=== PATIENT | female | born 1970 | race Caucasian/White ===

== ENCOUNTER 2021-12-06 17:54 | Outpatient (REF) | payer OTHER, SELFPAY ==
[2021-12-06 19:41] LABS: Abs Immature Grans 0.01 10^3/uL (0.0-0.06); Absolute Basophil Count 0.07 10^3/uL (0.0-0.2); Absolute Eosinophil Count 0.64 10^3/uL (0.0-0.7); Absolute Monocyte Count 0.57 10^3/uL (0.1-0.8); Absolute Neutrophil Count 4.37 10^3/uL (1.2-6.7); Basophils % 0.9; HCT 42.1 % (36.0-46.0); HGB 13.4 g/dL (11.2-15.7); Immature Grans % 0.1; Lymphocytes % 28.9; MCH 28.2 pg (27.0-33.0); MCHC 31.8 % (32.0-36.0); MCV 89 fL (80-95); MPV 11.2 fL (8.0-11.0); Monocytes % 7.2; Neutrophils % 54.9; Platelet Count 364 10^3/uL (130-400); RBC 4.75 10^6/uL (3.93-5.22); RDW 13.2 % (11.7-14.6); RDW-SD 43.1 fL; WBC 7.96 10^3/uL (4.4-10.8)
[2021-12-09 08:20] LABS: IgE 129 IU/mL (<158)
== END 2021-12-06 17:55 | disposition home or self-care (01) ==
LOC: LBN 17:54
PROVIDERS: PCP Nurse Practitioner Family; Visit Provider Student in an Organized Health Care Education/Training Program
DX: J45.909 Unspecified asthma, uncomplicated (principal)
CPT/HCPCS: 82785; 85025

== ENCOUNTER 2021-12-09 01:52 | Outpatient (CLI) | payer OTHER, SELFPAY ==
--- OUTSIDE RECORDS SUMMARY | 2021-12-09 01:57 | XMS_ITS | Encounter Summary ---
:1970 Author Organization [facility] Address [address] [place] [address] Care Team Providers Name Role Phone Jonathan Elmore APRN Primary Care Provider Reason for Visit Reason Onset Date Comments Medications Refill 09/20/2021 Encounter Details Date Type Department Care Team Description 09/20/2021 Refill [facility] ENT- Keren Swain MD Medications Refill [address] [address] [address], [place] [phone] (Wo rk) Social History Tobacco Use Types Packs/Day Years Used Date Former Smoker Cigarettes 04 03 Quit: 04/25/19 21 Smokeless Tobacco: Never Used Alcohol Use Standard Drinks/Week Comments Yes 7 (1 standard drink = 0.6 oz pure alcoho l) Sex Assigned at Date Recorded Not on file documented as of this encounter Ordered Prescriptions Prescription Sig Dispensed Refills Start Date End Date budesonide (PULMICORT) 0.5 2mL in sinus rinse 360 mL 3 0 09/26/2021 mg/2 mL nebulizer kit twice daily suspension documented in this encounter Miscellaneous Notes Telephone Encounter - Ramon Nelson RN - 09/20/2021 7414 EDT Refill appropriate per last note and maintenance medication prescription is less than a year old. Note states 1 mg rinse once daily but script was sent for 0.5 mg daily. Sent to provider for review and signature. elephone Encounter - Scarlett Bob - 09/20/2021 1251 EDT Medication(s) Requested budesonide (PULMICORT) 0.5 mg/2 mL nebulizer suspension [facility] [place], [place] - [address]?? Next Visit Date 11/04/2021 Last Office Visit07/29/2021 Out of Medication? No Scarlett Bob 09/20/2021 12:51 documented in this encounter Plan of Treatment Upcoming Encounters Date Type Specialty Care Team Description 02/17/2022 Office Visit Otolaryngology Keren Swain MD 111 [facility], [facility] 4 [place], [place] [phone] (Wo rk) documented as of this encounter Visit Diagnoses Not on filedocumented in this encounter Discontinued Medications Medication Sig Discontinue Reason Start Date End Date budesonide (PULMICORT) 2mL in sinus rinse 12/30/2020 09/26/2021 0.5 mg/2 mL nebulizer kit once daily suspension documented as of this encounter Care Teams Group Program Manager Relationship Specialty Start Date End Date Jonathan Elmore APRN PCP - General 12/29/[address] [place] [address] [address] [place] [address] documented as of this encounter
--- OUTSIDE RECORDS SUMMARY | 2021-12-09 01:57 | XMS_ITS | Encounter Summary ---
:1970 Author Organization [facility] Address [address] [place] [address] Care Team Providers Name Role Phone Jonathan Elmore APRN Primary Care Provider Encounter Details Date Type Department Care Team Description 05/02/2021 Lab Requisition [facility] Outr Resulting Lab, Pathology & Laboratory Provider [facility] [address] [place], [place] [address] Social History Tobacco Use Types Packs/Day Years Used Date Former Smoker Cigarettes 1 30 Quit: 04/25/19 21 Smokeless Tobacco: Never Used Alcohol Use Standard Drinks/Week Comments Yes 7 (1 standard drink = 0.6 oz pure alcoho l) Sex Assigned at Date Recorded Not on file documented as of this encounter Plan of Treatment Upcoming Encounters Date Type Specialty Care Team Description 02/17/2022 Office Visit Otolaryngology Keren Swain MD 111 [facility], [address] [place], [place] [phone] (Wo rk) documented as of this encounter Procedures Procedure Name Priority Date/Time Associated Diagnosis Comme nts COVID-19 TEST [facility] Today 05/02/2021 12:20 LAB PCR EST COVID-19 TESTING Routine 05/02/2021 12:20 Results for this EST procedure are i n the results section. documented in this encounter Results COVID-19 TEST [facility] LAB PCR (05/02/2021 12:20 EST) Specimen Swab Performing Organization Address City/State/ZIP Code Phon e Number [facility] [address] [place] [address] SERVICES COVID-19 TESTING (05/02/2021 12:20 EST) COVID-19 rt-PCR Negative Negative [facility] Result Comment: [facility] This test has not been FDA c leared or approved. This test has been authorized by FDA under an EUA for use by authorized laboratories. This test has been authorized only for detection of nucleic acid fro SERVICES m 2019-nCoV, not for any oth er viruses or pathogens. This test is only authorized for the duration of the declaration that circumstances exist justifying the authorization of emergency use of in vitro d iagnostic tests for detectio n and/or diagnosis of 2019-nCoV under section 564(b)(1) of Act, 21 U.S.C ?? 360bbb-3(b) (1), unless the authorization is terminated or revoked sooner. Negative results do not prec lude 2019-nCoV infection and should not be used as the sole basis for treatment or other patient management decisions. Negative results must be combined with clinical observa tions, patient history, and epidemiological informatio n. Testing was performed using the poly SARS-CoV-2 assay (Per [employer] on the Poly 6800 System Performing Lab Poly 6800 [facility] Lab [facility] SERVICES Specimen Swab Performing Organization Address City/State/ZIP Code Phon e Number [facility] [address] [place] [address] SERVICES documented in this encounter Visit Diagnoses Not on filedocumented in this encounter Care Teams Electrician Helper Powerhouse Relationship Specialty Start Date End Date Jonathan Elmore APRN PCP - General 12/29/[address] [place] [address] [address] [place], [place] [id number] documented as of this encounter
--- OUTSIDE RECORDS SUMMARY | 2021-12-09 01:57 | XMS_ITS | Encounter Summary ---
:1970 Author Organization [facility] Address [address] [place] [address] Care Team Providers Name Role Phone Jonathan Elmore APRN Primary Care Provider Reason for Visit Reason Comments Post-OP Follow Up Encounter Details Date Type Department Care Team Description 04/08/2021 Office Visit [facility] Keren Swain, Danielle onic pansinusitis ENT- [facility] (Primary Dx) [address] [phone] [facility], [address] [place] [address] (Wo rk) Social History Tobacco Use Types Packs/Day Years Used Date Former Smoker Cigarettes 1 30 Quit: 04/25/19 21 Smokeless Tobacco: Never Used Alcohol Use Standard Drinks/Week Comments Yes 7 (1 standard drink = 0.6 oz pure alcoho l) Sex Assigned at Date Recorded Not on file documented as of this encounter Ordered Prescriptions Prescription Sig Dispensed Refills Start Date End Date mupirocin (BACTROBAN) 2 Topically as directed 90 g 3 0 04/08/2021 % ointment BID, three 30 gm tubes for 30 days amoxicillin-clavulanate Take 1 Tablet by 20 Tablet 0 202104/18/2021 (AUGMENTIN) 875-125 mg mouth 2 times daily per tablet for 10 days. documented in this encounter Progress Notes Keren Swain MD - 04/08/2021 0945 EST Progress Note Division of Otolaryngology, Head and Neck Surgery Date of Service: 04/08/21 Provider: Keren Swain MD Chief Complaint: Chief Complaint Patient presents with ??? Post-OP Follow Up History of Present Illness: Aileen Murphy is a 51 y.o. female who comes in today in follow up of chronic sinusitis with polyps status post ESS 03/15/21. She has been doing well since surgery but has astable headache centered behind her eyes. This resolves with over the counter pain medications. She has been doing 8-10 saline rinses daily, with budesonide 1mg daily added. Past medical/surgical/family/social history was reviewed and unchanged other than: none Allergies: No Known Allergies Review of Systems: A 12 point review of systems was performed, and was otherwise negative. Physical Exam: Vital Signs: Reviewed (3) There were no vitals taken for this visit. Appearance: The patient appears alert, cooperative, and comfortable. Communication/Voice: Normal Head and Face: Inspection: Normal without apparent scars, lesions, or masses. Palpation: Not performed. Salivary Glands: Not examined Facial Strength: Intact and symmetrical bilaterally External Ear & Nose: No external ear or nose deformity noted Ears, Nose, Mouth and Throat: Otoscopy: Right external auditory canal: not examined Left external auditory canal: not examined Right tympanic membrane: not examined Left tympanic membrane: not examined Nose: See nasal endoscopy Lips, Teeth & Gums: not examined Oral Cavity & Oropharynx: not examined Neck: General: Not examined Thyroid: Not examined Cervical Lymph Nodes: Not Examined Procedure: Endoscopy Pre-procedure Dx: CRS with polyps Post-procedure Dx: same Indication: evaluation of symptoms of rhinitis/sinusitis unable to visualize on anterior rhinoscopy Anesthesia: Cophenylcaine Endoscopy type: Rigid Procedure: Informed consent was obtained. The patient was seated upright, and topical anesthetic wasapplied. After waiting for the anesthetic/vasoconstrictor effect, the scope was passed into both nostrils and the nasal cavities and nasopharynx were examined. The patient tolerated the procedure well,and left the office in stable condition. Complications: None Findings: Nose: septum midline, inferior turbinates normal in appearance and middle turbinates normal in appearance - right well medialized; left with a mild synechiae inferiorly on the left which was lysed. Right sinus cavity with zazueta crusting which was suctioned free. No obvious purulence or infection.Left sinus cavity with a small amount of purulent discharge within the left maxillary sinus which was suctioned free. Otherwise healing well with thin, healing mucosa on the left. The right sinus cavity with irregular, irritated mucosa without edema. Nasopharynx: Normal examination of the choanae, eustachian tube orifices, and posterior nasopharyngeal wall Assessment: 1. CRS with polyps status post ESS 03/15/21, healing well with evidence of mild infection at this time. We will treat with anti-staph mucolytic rinses and a course of oral antibiotics (augmentin) 2. Asthma - pending pulmonology consultation ?? Plan:?? - BID rinses with alkolol, mupirocin, budesonide in one and saline with budesonide in the second - Augmentin x7 days - Pulmonology consultation on a nonurgent basis to initiate care and ongoing treatment - Follow up in 1 month Keren Swain MD 04/08/21 documented in this encounter Plan of Treatment Upcoming Encounters Date Type Specialty Care Team Description 02/17/2022 Office Visit Otolaryngology Keren Swain MD [address] [facility], [address] [place], [place] [phone] (Wo rk) documented as of this encounter Visit Diagnoses Diagnosis Chronic pansinusitis - Primary Other chronic sinusitis documented in this encounter Care Teams Lens Cementer Relationship Specialty Start Date End Date Jonathan Elmore APRN PCP - General 12/29/[address] [place] [address] [address] [place] [address] documented as of this encounter
--- OUTSIDE RECORDS SUMMARY | 2021-12-09 01:57 | XMS_ITS | Encounter Summary ---
:1970 Author Organization [facility] Address [address] [place] [address] Care Team Providers Name Role Phone Jonathan Elmore APRN Primary Care Provider Encounter Details Date Type Department Care Team Description 11/22/2021 Lab Requisition [facility] Outr Resulting Lab, Pathology & Laboratory Provider [facility] [address] [place], [place] [address] Social History Tobacco Use Types Packs/Day Years [...] 02/17/2022 Office Visit Otolaryngology Keren Swain MD [address] [place] [address], [address] [place], [place] [phone] (Wo rk) documented as of this encounter Procedures Procedure Name Priority Date/Time Associated Diagnosis Comme nts LYME AB Routine 11/22/2021 16:08 EDT Results for this procedure are i n the results section . documented in this encounter Results LYME AB (11/22/2021 16:08 EDT) Pathologist Sig nature Lyme Ab Negative Negative [facility] Specimen Blood - Venous blood (substance) Performing Organization Address City/State/ZIP Code Phon e Number [facility] [address] [place] [address] SERVICES documented in this encounter Visit Diagnoses Not on filedocumented in this encounter Care Teams Sand Cleaning Machine Operator Relationship Specialty Start Date End Date Jonathan Elmore APRN PCP - General 12/29/[address] [place] [address] [address] [place] [address] documented as of this encounter
--- OUTSIDE RECORDS SUMMARY | 2021-12-09 01:57 | XMS_ITS | Encounter Summary ---
:1970 Author Organization [facility] Address [address] [place] [address] Care Team Providers Name Role Phone oJnathan Elmore APRN Primary Care Provider Encounter Details Date Type Department Care Team Description 07/15/2021 Orders Only [facility] Ramon Nelson RN Encounter for ENT- [address] preprocedure screening [address] [place] [address] [place] [address] COVID-19 (Primary Dx) [phone] Social History Tobacco Use Types Packs/Day Years [...] Office Visit Otolaryngology Keren Swain MD 111 [facility], Level [address] [place], [place] [address] (Wo rk) Scheduled Orders Name Type Priority Associated Diagnoses Order S chedule COVID-19 TESTING Microbiology Routine Encounter for Expected: 07/26/2021 preprocedure screening (Appr oximate), laboratory testing for Expir es: 07/15/2022 COVID-19 documented as of this encounter Visit Diagnoses Diagnosis Encounter for preprocedure screening lab oratory testing for COVID-19 - Primary documented in this encounter Care Teams Installer Relationship Specialty Start Date End Date Jonathan Elmore APRN PCP - General 12/29/[address] [place] [address] [address] [place] [address] documented as of this encounter
--- OUTSIDE RECORDS SUMMARY | 2021-12-09 01:57 | XMS_ITS | Encounter Summary ---
:1970 Author Organization [facility] Address [address] [place] [address] Care Team Providers Name Role Phone Jonathan Elmore APRN Primary Care Provider Encounter Details Date Type Department Care Team Description 04/21/2021 Orders Only [facility] Ramon Nelson, RN Encounter for ENT- [address] preprocedure screening [address] [place] [address] [place] [address] COVID-19 (Primary Dx) [phone] Social History Tobacco Use Types Packs/Day Years [...] Office Visit Otolaryngology Keren Swain MD 111 [facility], [address] [place], [place] [address] (Wo rk) documented as of this encounter Visit Diagnoses Diagnosis Encounter for preprocedure screening lab oratory testing for COVID-19 - Primary documented in this encounter Care Teams Electrical Appliance Preparer Relationship Specialty Start Date End Date Jonathan Elmore APRN PCP - General 12/29/[address] [place] [address] [address] [place], [place] [address] documented as of this encounter
--- OUTSIDE RECORDS SUMMARY | 2021-12-09 01:57 | XMS_ITS | Encounter Summary ---
:1970 Author Organization [facility] Address [address] [place] [address] Care Team Providers Name Role Phone Jonathan Elmore APRN Primary Care Provider Reason for Visit Reason Comments Follow-up Encounter Details Date Type Department Care Team Description 11/04/2021 Office Visit [facility] Keren Swain, Danielle onic pansinusitis ENT- [facility] (Primary Dx) [address] [place] [address] Avenue [phone] [facility], [address] [place] [address] (Wo rk) Social History Tobacco Use Types Packs/Day Years Used Date Former Smoker Cigarettes 30 Quit: 04/25/19 21 Smokeless Tobacco: Never Used Alcohol Use Standard Drinks/Week Comments Yes 7 (1 standard drink = 0.6 oz pure alcoho l) Sex Assigned at Date Recorded Not on file documented as of this encounter Progress Notes Keren Swain MD - 11/04/2021 0915 EDT Progress Note Division of Otolaryngology, Head and Neck Surgery Date of Service: 11/04/21 Provider: Keren Swain MD Chief Complaint: Chief Complaint Patient presents with ??? Follow-up History of Present Illness: Aileen Murphy is a 51 y.o. female who comes in today in follow up of chronic sinusitis with polyps status post ESS 03/15/21. ??She has been doing well since surgery. ??She has been one budesonide 1mg rinse daily. Her nasal breathing and sense of smell are good. She has no complaints today. Past ENT Surgeries/Interventions: Past medical/surgical/family/social history was reviewed and unchanged [...] inferior turbinates normal in appearance and middle turbinate normal in appearance. Left middle turbinate with a small synechiae to the lateral wall. The bilateral sinus cavities are widely patent with mild mucosal thickening but overall healthy mucosa throughout. Nasopharynx: Normal examination of the choanae, eustachian tube orifices, and posterior nasopharyngeal wall Investigations: 11/04/21 SNOT-22 total score: 8 Problem as bad as it can be - 5: N/A Severe problem - 4: N/A Moderate problem - 3: N/A Mild or slight problem - 2: Post-nasal discharge and Thick nasal discharge Very mild problem - 1: Need to blow nose, Sneezing, Runny nose and Thick nasal discharge NOSE score: 0 Assessment: 1. CRS with polyps??status post ESS 03/15/21. Mild increase in mucosal edema today so we discussed 2 weeks of BID 1mg budesonide rinses, then back to 1mg budesonide rinse daily 2. Asthma - pending pulmonology consultation ?? Plan:?? -??Daily 1mg budesonide rinse; 2 weeks of BID 1mg rinses - Pulmonology consultation on a nonurgent basis to initiate care and ongoing treatment - Follow up in??3??months Keren Swain MD 11/04/21 documented in this encounter Plan of Treatment Upcoming Encounters Date Type Specialty Care Team Description 02/17/2022 Office Visit Otolaryngology Keren Swain MD [address] [facility], [address] [employer] [address] (Wo rk) documented as of this encounter Visit Diagnoses Diagnosis Chronic pansinusitis - Primary Other chronic sinusitis documented in this encounter Historical Medications This list may reflect changes made after this encounter. Medication Sig Dispensed Refills Start Date End Date omeprazole (PRILOSEC) 40 mg capsule 0 10/17/2021 added in this encounter Care Teams Skin Drier Relationship Specialty Start Date End Date Jonathan Elmore APRN PCP - General 12/29/[address] [place] [address] [address] [place] [address] documented as of this encounter
--- OUTSIDE RECORDS SUMMARY | 2021-12-09 01:57 | XMS_ITS | Encounter Summary ---
:1970 Author Organization [facility] Address [address] [place] [address] Care Team Providers Name Role Phone Jonathan Elmore APRN Primary Care Provider Reason for Visit Reason Comments Follow-up Encounter Details Date Type Department Care Team Description 05/06/2021 Office Visit [facility] Keren Swain, Danielle onic pansinusitis ENT- [facility] (Primary Dx) [address] [place] [address] Avenue [phone] [facility], [address] [place] [address] (Wo rk) Social History Tobacco Use Types Packs/Day Years Used Date Former Smoker Cigarettes 04 03 Quit: 04/25/19 21 Smokeless Tobacco: Never Used Alcohol Use Standard Drinks/Week Comments Yes 7 (1 standard drink = 0.6 oz pure alcoho l) Sex Assigned at Date Recorded Not on file documented as of this encounter Progress Notes Keren Swain MD - 05/06/2021 0900 EST Progress Note Division of Otolaryngology, Head and Neck Surgery Date of Service: 05/06/21 Provider: Keren Swain MD Chief Complaint: Chief Complaint Patient presents with ??? Follow-up History of Present Illness: Alieen Murphy is a 51 y.o. female who comes in today in follow up of chronic sinusitis with polyps status post ESS 03/15/21. ??She has been doing well since surgery and herheadache has resolved. ??She has been doing multiple saline rinses daily, with budesonide 1mg daily added. Past ENT Surgeries/Interventions: Past medical/surgical/family/social history was [...] Nodes: Not Examined Procedure: Endoscopy Pre-procedure Dx: CRS, recent ESS Post-procedure Dx: same Indication: evaluation of symptoms of rhinitis/sinusitis unable to visualize on anterior rhinoscopy;postoperative evaluation Anesthesia: Cophenylcaine Endoscopy type: Rigid Procedure: Informed [...] appearance and middle turbinates normal in appearance and well medialized. Small synechiae from the left MT to the side wall that was left in place today. Bilateral sinus cavities are patent with thin, healthy mucosa throughout. No crusting or discharge. No edema. Nasopharynx: Normal examination of the choanae, eustachian tube orifices, and posterior nasopharyngeal wall Assessment: 1. CRS with polyps??status post ESS 03/15/21, healing well. Left MT to lateral wall synechiae left inplace - can consider lysis at future visit 2. Asthma - pending pulmonology consultation ?? Plan:?? -??BID rinses with alkolol, mupirocin, budesonide in one and saline with budesonide in the second - Pulmonology consultation on a nonurgent basis to initiate care and ongoing treatment - Follow up in 2 months Keren Swain MD 05/06/21 documented in this encounter Plan of Treatment Upcoming Encounters Date Type Specialty Care Team Description 02/17/2022 Office Visit Otolaryngology Keren Swain MD 111 [facility], [address] [place], [place] [phone] (Wo rk) documented as of this encounter Visit Diagnoses Diagnosis Chronic pansinusitis - Primary Other chronic sinusitis documented in this encounter Care Teams Financial Systems Manager Relationship Specialty Start Date End Date Jonathan Elmore APRN PCP - General 12/29/[address] [place] [address] [address] [place] [address] documented as of this encounter
--- OUTSIDE RECORDS SUMMARY | 2021-12-09 01:57 | XMS_ITS | Encounter Summary ---
:1970 Author Organization [facility] Address [address] [place] [address] Care Team Providers Name Role Phone Jonathan Elmore APRN Primary Care Provider Encounter Details Date Type Department Care Team Description 12/07/2021 Lab Requisition [facility] Outr Resulting Lab, Pathology & Laboratory Provider [facility] [address] [place], [place] [address] Social History Tobacco Use Types Packs/Day Years [...] Office Visit Otolaryngology Keren Swain MD 111 [facility], [address] [place], [place] [address] (Wo rk) Pending Results Name Type Priority Associated Diagnoses Date/Ti me IGE Lab Routine 12/06/2021 19:2 3 EDT documented as of this encounter Visit Diagnoses Not on filedocumented in this encounter Care Teams Plate Printer Relationship Specialty Start Date End Date Jonathan Elmore APRN PCP - General 12/29/20 [facility] [address] [place], [place] [id number] documented as of this encounter
--- OUTSIDE RECORDS SUMMARY | 2021-12-09 01:57 | XMS_ITS | Encounter Summary ---
:1970 Author Organization [facility] Address [address] [place] [address] Care Team Providers Name Role Phone Jonathan Elmore APRN Primary Care Provider Reason for Visit Auth/Cert Specialty Diagnoses / Procedures Referred By Contact Refer red To Contact Diagnoses Other chronic sinusitis Chronic pansinusitis Procedures CO REPAIR OF NASAL SEPTUM CO NASAL/SINUS NDSC TOT W/SPHENDT W/SPHEN TISS RMVL CO NASAL SCOPY,RMV TISS MAXILL SINUS CO NASAL/SINUS NDSC W/RMVL TISS FROM FRONTAL SINUS CO STEREOTACTIC COMP ASSIST PROC,CRANIAL,EXTRADURAL Bilateral endoscopic sinus s urgery, possible septoplasty ENDOSCOPY, PARANASAL SINUSES, WITH TOTAL ETHMOIDECTOMY, SPHENOIDOTOMY, AND SPHENOID SINUS TISSUE REMOVAL [[id number]] ENDOSCOPY, NOSE AND PARANASA L SINUS, WITH MAXILLARY ANTROSTOMY AND MAXILLARY SINUS TISSUE EXCISION [[id number]] ENDOSCOPY, FRONTAL SINUS, WITH TISSUE EXCISION [[id number]] Referral ID Status Reason Start Date Expiration Date Visits Requ ested Visits Authorized [id number] 1 1 Encounter Details Date Type Department Care Team Description 03/15/2021 Surgery [facility] OR Keren Swain MD Bilateral endoscopic 111 [facility] e 111 [facility] sinus surgery [[address] [place], [place] [id number] [place] [address] (CPT??)] [phone] [facility] [address] [place] [id number] (Wo rk) Surgery Details Date/Time Status Location OR Service Patient Class Case Class Case Trauma Type Case? 03/15/21 1040 Posted [facility] OR [facility] - Outpatient Elective Surgery Panel 1 Procedure LRB Anes Op Region Wound Class Commen ts Bilateral N/A General Nose Class II/ Clean TIVA anes thesia endoscopic sinus Contaminated 3.5 ho urs surgery requested 1 week follow up [facility] requested ENDOSCOPY, Bilateral General Nose Class II/ Clean PARANASAL SINUSES, Contaminated WITH TOTAL ETHMOIDECTOMY, SPHENOIDOTOMY, AND SPHENOID SINUS TISSUE REMOVAL [[id number]] ENDOSCOPY, NOSE AND Bilateral General Nose Class II/ Clean PARANASAL SINUS, Contaminated WITH MAXILLARY ANTROSTOMY AND MAXILLARY SINUS TISSUE EXCISION [[id number]] ENDOSCOPY, FRONTAL Bilateral General Nose Class II/ Clean SINUS, WITH TISSUE Contaminated EXCISION [[id number]] Surgeon Surgeon Role Service Panel Keren Swain MD Primary ENT 1 Van Vizcaino MD Resident - Assisting ENT 1 Special Needs [facility]IVA please; [facility] Social History Tobacco Use Types Packs/Day Years Used Date Former Smoker Cigarettes 30 Quit: 04/25/19 Smokeless Tobacco: Never Used Alcohol Use Standard Drinks/Week Comments Yes 7 (1 standard drink = 0.6 oz pure alcoho l) Sex Assigned at Date Recorded Not on file documented as of this encounter Last Filed Vital Signs Vital Sign Reading Time Taken Comments Blood Pressure 125/77 03/15/2021 0903 EST Pulse - - Temperature 36.6 ??C (97.9 ??F) 03/15/2021 0903 EST Respiratory Rate 16 03/15/2021 0903 EST Oxygen Saturation 97% 03/15/2021 0903 EST Inhaled Oxygen Concentration - - Weight - - Height - - Body Mass Index - - documented in this encounter Discharge Instructions Roc Kinney RN - 03/15/2021 Post-operative nose & sinus care Looking after your nose and sinuses can greatly improve your recovery. Ongoing topical care may alsobe necessary to assist in returning your nose and sinus back to health. 1. Saline Irrigation with squeeze bottle: start the day after your surgery, one wash twice a day Nasal irrigations help to remove mucus, old blood and crusts, inflammatory products, fungus, and bacteria, which can irritate the sinus lining (mucosa). High volume positive pressure irrigation (Neilmed sinus rinse) is the most effective way to deliver solution to the sinus mucosa. Simple nasal spraysonly reach the lining of the nasal cavity. Nebulizers, inhalations, pressurized sprays and other forms of delivery are less effective. You can irrigate more frequently but at least twice a day. How do I use it? With your head over the sink, place the black bottle tip firm against the nostril and squeeze the bottle firmly. This should empty about half the bottle. Solution should flow out the other nostril. Repeat on the other nostril. Please use the squeeze bottle and not a pump or pressurized spray. You can use it more than twice a day if it helps clear secretions. Video of irrigation technique: https://www.youtube.com/watch?v=DYZDeiOVJx0 Or search ???B[place]ivar Med Sinus Rinse?? from the [employer] channel 2. Antibiotic Ointment: pea-sized amount to both nostrils 2x/day Bactroban ointment is an antibiotic that kills infection-causing bacteria. It is especially effective against Staph aureus bacteria. 3. Other medicines that might be required Oral Antibiotic An antibiotic effective against common bacteria in the sinus has been prescribed. Helps to prevent sinusitis and infection after surgery. An alternative will be given if you are allergic to penicillin.Oral Steroid (prednisone) Prevents and reduces inflammation after surgery. Take in the morning. Oxymetazoline nasal spray Useful in in the first 72 hours if there is troublesome bleeding/ooze 4. Pain relief: Regular use of Tylenol and ibuprofen for 48-72 hours then as required. You may be given a few tablets of narcotic pain medication to be used for breakthrough pain not relieved with Tylenol and ibuprofen. 5. Do not blow your nose. It's better to irrigate out any mucus or old blood. 6. If you bend down or strain, blood may come out of the nose from the small healing mucosal edges inside. Do not worry if this happens ??? no harm is done ??? but it is a sign to take things easier. 7. Your postoperative appointment will be 7-21 days after surgery. Please see your discharge paperwork for this appointment time. Call the clinic with any concerns: You may resume Acetaminophen (Tylenol) at __7:30 pm____. Please follow instructions for use on back of bottle. You may resume Ibuprofen (Advil) at __9 pm .Please follow instructions for use on back of bottle. documented in this encounter Medications at Time of Discharge Medication Sig Dispensed Refills Start Date End Date budesonide/formoterol Inhale as directed. 0 fumarate (SYMBICORT INHALATION) cetirizine (ZYRTEC) 10 Take 10 mg by mouth 0 mg tablet daily. famotidine (PEPCID) 20 Take 20 mg by mouth 0 mg tablet daily. montelukast (SINGULAIR) Take by mouth daily. 0 10 mg tablet oxyCODONE (ROXICODONE) 5 Take 1 Tablet by 2 Tablet 0 03/15 mg immediate release mouth every 4 hours tablet as needed for Pain. Daily Max: 30 mg budesonide (PULMICORT) 2mL in sinus rinse 180 mL 3 12/3009/26/2021 0.5 mg/2 mL nebulizer kit once daily suspension cephalexin (KEFLEX) 500 Take 1 capsule by 14 capsule 0 03/1503/22/2021 mg capsule mouth 2 times daily for 7 days. predniSONE (DELTASONE) Take 3 Tablets by 42 Tablet 0 202104/05/2021 10 mg tablet mouth daily for 7 days, THEN 2 Tablets daily for 7 days, THEN 1 Tablet daily for 7 days. documented as of this encounter Ordered Prescriptions Prescription Sig Dispensed Refills Start Date End Date oxyCODONE (ROXICODONE) 5 Take 1 Tablet by 2 Tablet 0 03/15 mg immediate release mouth every 4 hours tablet as needed for Pain. Daily Max: 30 mg predniSONE (DELTASONE) 10 Take 3 Tablets by 42 Tablet 0 01/202204/05/2021 mg tablet mouth daily for 7 days, THEN 2 Tablets daily for 7 days, THEN 1 Tablet daily for 7 days. cephalexin (KEFLEX) 500 Take 1 capsule by 14 capsule 0 03/1503/22/2021 mg capsule mouth 2 times daily for 7 days. documented in this encounter Discharge Disposition Disposition Code Departure Means Destination Comments Home or Self Care Wheelchair [facility] nd documented in this encounter H&P Notes Van Vizcaino MD - 03/15/2021 1018 EST The preoperative history and physical which was performed within 30 days of this procedure has been reviewed and the clinically appropriate elements of the physical examination havebeen repeated. There are no changes to the documented history and physical or if so such changes aredocumented below Van Vizcaino MD 03/15/2021 10:18 documented in this encounter Nursing Notes Darryl Erwin RN - 03/15/2021 0906 EST Preop Covid DOS screening questionnaire Please document by exception (only check those that apply). Have you had any of the following symptoms recentlyNo Yes Chronic ? Cough Shortness of breath or difficulty breathing Fever Chills Fatigue Muscle or body aches Severe Headache New loss of taste or smell Sore throat Congestion or runny nose Rash Nausea, vomiting, or diarrhea (rare in adults. More common in children) Were you covid tested Yes When: 03/11/21 Results: Vaccinated: YES See admission vital signs documentation for admission temperature. DARRYL ERWIN RN documented in this encounter OR Notes OR Surgeon - Keren Swain MD - 03/15/2021 1018 EST OPERATIVE REPORT SERVICE DATE: 03/15/2021 SURGEON: Keren Swain MD STAFFING ADMINISTRATOR: Van Vizcaino MD PREOPERATIVE DIAGNOSIS: 1. Chronic rhinosinusitis. POSTOPERATIVE DIAGNOSIS: Same. ANESTHESIA: General endotracheal. PROCEDURE: 1. Bilateral maxillary antrostomy with removal of tissue 2. Bilateral total ethmoidectomy 3. Bilateral sphenoidotomy with removal of diseased tissue 4. Use of [employer] imaging guidance system FINDINGS: 1. Sinonasal polyposis within the nasal cavity and the paranasal sinuses. Thick mucin within the paranasal sinuses. INDICATIONS: Aileen Murphy is a 51 y.o. female with a history of chronic sinusitis with polyposis in the setting of asthma. Due to the duration and severity of these symptoms, and the lack of response to medical therapy, surgery was recommended to decrease inflammatory burden and facilitate delivery of topical medications. NARRATIVE: The patient was identified in the preoperative hold area, where surgical consent was confirmed and all pertinent questions were answered. The patient was then escorted to the operating theater, where abrief operative time-out was assured, according to the WHO standards. The patient was then positioned supine on the operating table and the patient???s head supported by an operative donut. The patientthen underwent general anesthesia and an oral endotracheal tube was placed. Patient position was then changed to the reverse Trendelenberg to aid in hemostasis. The patient was then draped in the usualmanner for nasal surgery. Upon induction, 2g of IV Kefzol and 8mg of IV Decadron were administered. Prior to surgery, the CT scan was reviewed, with careful consideration of the anterior ethmoid arteries and optic nerves. [facility] protocol CT sinus scans were also downloaded to the [employer] workstation. The [facility] system was used because of the extent of disease and the need to enter sinuses, adjacent to the eyes and brain. This was calibrated to good accuracy, with multiple instruments and calibration was re-checked at multiple times throughout the case as we used instruments to confirm important anatomical details, like position of the ethmoid roof and frontal sinus pederson. Surgery was furtherfacilitated with Storz 0- and 30-degree endoscopes, [employer] instrumentation, and the [employer] [facility] odebrider. Prior to proceeding, bilateral nasal cavities were topicalized with pledgets soaked in 0.5% bupivicaine with 1:2000 epinepherine solution. After allowing adequate time for vasoconstriction, the case proceeded with injection of 0.5% marcaine with epinephrine into bilateral lateral pederson - at the regions of the sphenopalatine artery and the anterior ethmoid artery. Attention was turned to the left nasal cavity. Polyps were debrided from the nasal cavity. Using a 0-degree endoscope, the uncinate was incised from posterior to anterior at its inferior aspect with a backbiter. The natural ostium was cannalized anteriorly and stretched posteriorly with a double-J probe to visualize the maxillary sinus. A straight through-cut was used to open the maxillary ostium posteriorly and inferiorly. The inferior uncinate was then removed with a backbiter. The superior uncinate was palpated with the double J probe and removed with up and straight through-cut instruments. A quadcut microdebrider was used to create a large maxillary antrostomy, through which the inferior orbital wall was identified. A 30 degree scope was used to confirm that the natural ostium was in continuity with the antrostomy. Extensive polypoid tissue and mucinous concretions were debrided from the maxillary sinus. The ethmoid bulla was identified and an up curette was used to marsupialize this. The bulla was excised and lamina was exposed using the quadcut microdebrider. The anterior ethmoid cells were opened. The basal lammella was entered with an up curette. Up through-cut forceps were used to open the posteri or ethmoids carefully, with care taken to stay at a plane below the floor of the orbit. The head of the superior turbinate was identified and the inferior-most aspect of it was removed with a straight through cut. This allowed for exposure of the sphenoid ostium, which was cannulated withan up curette and stretched gently inferiorly and laterally. Up and down kerrisons were then used toexcise the anterior face of the sphenoid with care taken to preserve the superior turbinate. Extensive polypoid tissue was removed from the sphenoid sinus. This provided complete visualization of the skull base posteriorly. The posterior ethmoidectomy was then completed from posteriorly to anteriorly in order to visualize the skull base throughout the ethmoid cavity. Attention was then turned to the right nasal cavity. Using a 0-degree endoscope, the uncinate was incised from posterior to anterior at its inferior aspect with a backbiter. The natural ostium was cannalized anteriorly and stretched posteriorly with a double-J probe to visualize the maxillary sinus. Astraight through-cut was used to open the maxillary ostium posteriorly and inferiorly. The inferior uncinate was then removed with a backbiter. The superior uncinate was palpated with the double J probe and removed with up and straight through- cut instruments. A quadcut microdebrider was used to create a large maxillary antrostomy, through which the inferior orbital wall was identified. A 30 degree scope was used to confirm that the natural ostium was in continuity with the antrostomy. Extensive polypoid tissue and concretions was debrided from the maxillary sinus. The ethmoid bulla was identified and an up curette was used to marsupialize this. The bulla was excised and lamina was exposed using the quadcut microdebrider. The anterior ethmoid cells were opened. The basal lammella was entered with an up curette. Up through-cut forceps were used to open the posteri or ethmoids carefully, with care taken to stay at a plane below the floor of the orbit. The head of the superior turbinate was identified and the inferior-most aspect of it was removed with a straight through cut. This allowed for exposure of the sphenoid ostium, which was cannulated withan up curette and stretched gently inferiorly and laterally. Up and down kerrisons were then used toexcise the anterior face of the sphenoid with care taken to preserve the superior turbinate. Extensive polypoid tissue was removed from the sphenoid sinus. This provided complete visualization of the skull base posteriorly. The posterior ethmoidectomy was then completed from posteriorly to anteriorly in order to visualize the skull base throughout the ethmoid cavity. After assuring adequate hemostasis, the middle turbinates were medialized with a transfixion suture using Vicryl. Bilateral gloved merocel packs were placed in the ethmoid spaces and infiltrated with 5mg decadron mixed with 0.5mg marcaine with 1:200,000 epinephrine. The patient was then turned over to anesthesia for emergence. There were no complications to the case and the patient tolerated the procedure well. All counts were correct at the close of the procedure. Dr. Swain was present and actively participated in the care of this patient throughout the duration of the case. ESTIMATED BLOOD LOSS: 80 mL. FLUIDS: See anesthesia record. URINE OUTPUT: Not recorded. SPECIMENS: Bilateral sinus contents for surgical pathology. CULTURES: Left maxillary and right sphenoid sinus contents for culture, sensitivity, gram stain, andfungal. DRAINS, PACKS AND FOREIGN MATERIALS RETAINED: Bilateral gloved merocel packs were placed in the ethmoid spaces. COMPLICATIONS: None. CONDITION: Good to PACU. Unless otherwise noted, there were no complications, no blood loss, no cultures obtained, no specimens removed, and no drains retained. Van Vizcaino MD PGY-5, Otolaryngology Chief Resident 03/15/21 13:31 Attestation statement: Supervising Physician I was present for the entire bilateral endoscopic sinussurgery procedure. Keren Swain MD Otolaryngology-[facility] documented in this encounter Plan of Treatment Upcoming Encounters Date Type Specialty Care Team Description 02/17/2022 Office Visit Otolaryngology Keren Swain MD [address] [facility], [address] [place], [place] [address] (Wo rk) documented as of this encounter Procedures Procedure Name Priority Date/Time Associated Diagnosis Comme nts ANAEROBE Routine 03/15/2021 13:03 Results for this CULTURE/SMEAR(INC. EST procedure are in AEROBES), OTHER the results section. FUNGUS Routine 03/15/2021 13:03 Results for this CULTURE/SMEAR EST procedure are in the results section. ANAEROBE Routine 03/15/2021 12:00 Results for this CULTURE/SMEAR(INC. EST procedure are in AEROBES), OTHER the results section. FUNGUS Routine 03/15/2021 12:00 Results for this CULTURE/SMEAR EST procedure are in the results section. SURGICAL PATHOLOGY Routine 03/15/2021 11:49 Resul ts for this EST procedure are i n the results section. ENDOSCOPY, FRONTAL 03/15/2021 10:50 Other chronic SINUS, WITH TISSUE EST sinusitis EXCISION Chronic pansinusitis Special Needs TIVA please; [facility] EM ENDOSCOPY, NOSE AND 03/15/2021 10:50 EST Other c hronic sinusitis PARANASAL SINUS, WITH Chronic pansinusiti s MAXILLARY ANTROSTOMY AND MAXILLARY SINUS TISSUE EXCISION Special Needs TIVA please; [facility] EM ENDOSCOPY, PARANASAL 03/15/2021 10:50 EST Other chronic sinusitis SINUSES, WITH TOTAL Chronic pansinusitis ETHMOIDECTOMY, SPHENOIDOTOMY, AND SPHENOID SINUS TISSUE REMOVAL Special Needs TIVA please; [facility] EM SEPTOPLASTY, NOSE, WITH 03/15/2021 10:50 EST Oth er chronic sinusitis SUBMUCOSAL RESECTION Chronic pansinusitis Special Needs TIVA please; [facility] EM TEST, URINE STAT 03/15/2021 9:13 EST Results for this procedure are in the results sec tion. documented in this encounter Results ANAEROBE CULTURE/SMEAR(INC. AEROBES), OTHER (03/15/2021 13:03 EST) Pathologist Sig nature Organism ID No Growth [facility] Smear No Neutrophils Seen [facility] Smear No bacteria seen [facility] Specimen Tissue - Nasal Sinus, Sphenoid Performing Organization Address City/State/ZIP Code Phon e Number [facility] [address] [place] [address] SERVICES FUNGUS CULTURE/SMEAR (03/15/2021 13:03 EST) Pathologist Sig nature Organism ID No fungi isolated [facility] Fungal Smear No Fungi Seen [facility] Specimen Tissue - Nasal Sinus, Sphenoid Performing Organization Address City/[facility]/ZIP Code Phon e Number [facility] [address] [place] [phone] SERVICES (ABNORMAL) ANAEROBE CULTURE/SMEAR(INC. AEROBES), OTHER (03/15/2021 12:00 EST) Pathologist Sig nature Organism ID Few usual [facility] william-pharyngeal mike LABORATORY SERVICES Smear Moderate Neutrophils [facility] Present (A) LABORATORY SERVICES Smear Few Mixed Gram [facility] Positive Organisms (A) LABORATORY SERVICE S Specimen Tissue - Nasal Sinus, Maxillary Performing Organization Address City/[facility]/ZIP Code Phon e Number [facility] [address] [place] [phone] SERVICES FUNGUS CULTURE/SMEAR (03/15/2021 12:00 EST) Pathologist Sig nature Organism ID No fungi isolated [facility] Fungal Smear No Fungi Seen [facility] Specimen Tissue - Nasal Sinus, Maxillary Performing Organization Address City/[facility]/ZIP Code Phon e Number [facility] [address] [place] [phone] SERVICES SURGICAL PATHOLOGY (03/15/2021 11:49 EST) Note to Patient The following [facility] pathology results CENTER have been interpreted LABORATORY by your pathologist SERVICES and may be available to you before your health provider has had the opportunity to review them. Please allow time for your provider to receive these results and explore management options, if applicable. Final Diagnosis A. SINUS CONTENTS, BILATERAL, TISSUE REMOVAL: [facility] MEDICAL - Fragments of respiratory m ucosa with chronic inflammation and abundant eosinophils. CENTER - Abundant aggregates of eos inophils and debris outside of the tissue fragments. LABORATORY - PAS stain performed on 2 b locks (A1 and A3) to increase diagnostic yield: Stains are negative for fungal organisms. SERVICES Attestation By the signature [facility] Electronica lly below, the attending CENTER signed by Marcello, physician certifies LABORATORY Rosa chau MD on that they have 1) SERVICES 03/18/2021 at 1209 personally conducted a gross and/or microscopic examination of the described specimen(s), and/or personally interpreted the results of laboratory testing of the described specimen(s), and 2) personally rendered or confirmed the above diagnosis. Clinical History Other chronic [facility] sinusitis, chronic CENTER pansinusitis LABORATORY SERVICES Gross Description A. [facility] Received fresh in a suction container, labelled with proper patient identification (initials C, D) and bilateral sinus contents is serosanguineous fluid, within which are multiple pink-rodriguez soft tissue CENTE R fragments admixed with bloo d and mucus (12.0 x 11.0 x 2.0 cm in aggregate). Cs Associate sections are submitted in A1-A3. LABORATORY SERVICES LEELA ARAUJO(ASCP) 03/16/2021 8:28 Performing Lab [facility] Scanned Images [facility] Specimen Tissue - Entire nasal sinus (body struct ure) Performing Organization Address City/[facility]/ZIP Code Phon e Number [facility] [address] [place] [address] SERVICES TEST, URINE (03/15/2021 9:13 EST) Test, NegativeComment: Negative [facility] Urine False negative LABORATORY results may occur in SERVICES women who are beyond 5-8 weeks gestation. Diagnosis of should be based on a correlation of test results with typical clinical signs and symptoms. Specimen Urine - Urine (substance) Performing Organization Address City/[facility]/ZIP Code Phon e Number [facility] [address] [place] [address] SERVICES documented in this encounter Visit Diagnoses Diagnosis Other chronic sinusitis - Primary Other chronic sinusitis Chronic pansinusitis Other chronic sinusitis documented in this encounter Admitting Diagnoses Diagnosis Other chronic sinusitis documented in this encounter Administered Medications Inactive Administered Medications - up to 3 most recent administrations Medication Order MAR Action Action Date Dose Rate Site acetaminophen (TYLENOL) solution unit do se cup 995 mg 995 mg (rounded from 1,000 mg), oral, CO N, 1 dose, Starting on Sun03/15/21 at 1930, Until Sun03/15/21 at 1748, Pain, Routine, Recovery (on ly) acetaminophen (TYLENOL) tablet 1,000 mg 1,000 mg, oral, PRN, 1 dose, Starting on Sun03/15/21 at 1930, Until Sun03/15/21 at 1748, Pain, Routine, Recovery (only) atropine 0.1 mg/mL syringe 0.5 mg 0.5 mg, intravenous, PRN, Starting on Sun03/15/21 at 1 332, Until Sun03/15/21 at 1748, Symptomatic HR < 50, Routine, Recovery (only) bacitracin zinc 500 unit/gram ointment Given 03/15/2021 13:28 EST 1 g PRN, Starting on Sun03/15/21 at 1328, Until Sun03/15/21 at 1411, Intraprocedure bupivacaine (PF) (MARCAINE) 0.5% 30 mL, Given 03/15/2021 12:[address] 60 mL EPINEPHrine (ADRENALIN) 30 mL PRN, Starting on Sun03/15/21 at 1210, Until Sun03/15/21 at 1411, Routine, Intraprocedure bupivacaine-EPINEPHrine (PF) 0.5 %-1:200,000 Given 03/15/2021 12 :11 EST 10 mL Other injection PRN, Starting on Sun03/15/21 at 1211, Until Sun03/15/21 at 1411, Routine, Intraprocedure dexAMETHasone (DECADRON) injection Given 03/15/2021 13:27 EST 10 mg PRN, Starting on Sun03/15/21 at 1327, Until Sun03/15/21 at 1411, Routine, Intraprocedure diphenhydrAMINE (BENADRYL) injection 12. 5 mg 12.5 mg, intravenous, PRN, 1 dose, Starting on 03/05 at 1448, Until Sun03/15/21 at 1748, nausea, Routine, Recovery (only) fentaNYL citrate (PF) injection 25-50 mc g 25-50 mcg, intravenous, EVERY 5 MIN PRN, Starting on Sun03/15/21 at 1332, Until Sun03/15/21 at 1748, Pain, Routine, Recovery (only) ibuprofen (MOTRIN) tablet 600 mg Given 03/15/2021 14:48 EST 600 mg 600 mg, oral, PRN, 1 dose, Starting on Sun03/15/21 at 1333, Until Sun03/15/21 at 1448, Pain, Routine, Recovery (only) lactated ringers (LR) infusion Rate Change 03/15/2021 14:11 EST 1000 mL/hr at 25 mL/hr, intravenous, CONTINUOUS, Starting on Sun03/15/21 at 0930, Until Sun03/15/21 at 1748, Routine, Preprocedure Continued by Anesthesia 03/15/2021 11:00 EST 25 mL/hr New Bag 03/15/2021 10:29 EST 25 mL/hr lactated ringers (LR) infusion Rate Documented 03/15/2021 14:09 EST 75 mL/hr at 75 mL/hr, intravenous, CONTINUOUS, Starting on Sun03/15/21 at 1400, Until Sun03/15/21 at 1748, Routine, Recovery (only) lactated ringers BOLUS 500 mL Given 03/15/2021 14:21 EST 500 mL 500 mL, intravenous, NOW X1, 1 dose, On Sun03/15/21 at 1430, Routine metoclopramide (REGLAN) injection 10 mg Given 03/15/2021 15:06 EST 10 mg 10 mg, intravenous, PRN, 1 dose, Starting on Sun03/15/21 at 1448, Until Sun03/15/21 at 1506, Nausea, Routine, Recovery (only) naloxone (NARCAN) injection 0.2 mg 0.2 mg, intravenous, PRN, Starting on Sun03/15/21 at 1 333, Until Sun03/15/21 at 1748, Opioid Reversal, Routine, Recovery (only) ondansetron (PF) (ZOFRAN) injection 4 mg 4 mg, intravenous, PRN, 1 dose, Starting on Sun03/15/21 at 1333, Until Sun03/15/21 at 1748, Nausea, Vomiting, Routine, Recovery (only) oxyCODONE (ROXICODONE) immediate release tablet 5-10 mg 5-10 mg, oral, EVERY 30 MINUTES PRN, 2 doses, Starting on Sun03/15/21 at 1333, Until Sun03/15/21 at 1748, Pain, Routine, Recovery (on ly) oxymetazoline (AFRIN) 0.05 % nasal spray 2 P[place] 2 [place], nasal - both, EVERY 10 MINUTES PRN, Starting on Sun03/15/21 at 1336, Until Sun03/15/21 at 1748, epistaxis, STAT, Recovery (only) phenylephrine HCl in 0.9% Rate Documented 03/15/2021 14:59 EST 10 m cg/min 7.5 mL/hr NaCl (NEO_SYNEPHRINE) 20 mg/250 mL (80 mcg/mL) infusion solution 20-80 mcg/min (15-60 mL/hr), intravenous, CONTINUOUS, Starting on Sun03/15/21 at 1445, Until Sun03/15/21 at 1748, Routine Rate Change 03/15/2021 14:41 EST 20 mcg/min 15 mL/hr Rate Change 03/15/2021 14:23 EST 30 mcg/min 22.5 mL/hr sodium chloride 0.9 % irrigation Given 03/15/2021 12:11 EST 1,000 mL PRN, Starting on Sun03/15/21 at 1211, Until Sun03/15/21 at 1411, Routine, Intraprocedure documented in this encounter Historical Medications This list may reflect changes made after this encounter. Medication Sig Dispensed Refills Start Date End Date cetirizine (ZYRTEC) 10 mg Take 10 mg by mouth 0 tablet daily. added in this encounter Active and Recently Administered Medications Times are shown in EST. Scheduled Medication Order 03/13/2021 03/14/2021 03/15/2021 ceFAZolin (ANCEF) syringe 2 g (COMPLETED) 1120 (Given - Provider: Barry Aguilera MD) 2 g, intravenous, Administer over 5 Catarina racheal, PRE-OP ONCE, 1 dose, On Sun03/15/21 at 1045, Routine lactated ringers BOLUS 500 mL (COMPLETED) 1421 (Given - Provider: Roc Vásquez RN) 500 mL, intravenous, NOW X1, 1 dose, On Sun03/15/21 at 1430, Rou ailin Continuous Medication Order 03/13/2021 03/14/2021 03/15/2021 lactated ringers (LR) infusion 1 029 (New Bag - Provider: Darryl Erwin RN)1100 (Continued by Anesthesia - Provider: Barry Aguilera MD)1411 (Rate Change - Provider: Juan Diaz MD)1414 (Completed - Provider: Juan Diaz MD) at 25 mL/hr, intravenous, CONTINUOUS, St arting on Sun03/15/21 at 0930, Until Sun03/15/21 at 1748, Routine, Preprocedure lactated ringers (LR) infusion 1 409 (Rate Documented - Provider: Roc Vásquez RN) at 75 mL/hr, intravenous, CONTINUOUS, St arting on Sun03/15/21 at 1400, Until Sun03/15/21 at 1748, Routine, Recovery (only) phenylephrine HCl in 0.9% NaCl (NEO_SYNE PHRINE) 20 mg/250 mL (80 mcg/mL) infusion solution 1420 (New Bag - Prov ider: Roc Vásquez RN)1423 (Rate Change - Provider: Roc Vásquez RN)1441 (Rate Change - Provider: Roc Vásquez, RN)1459 (Rate Documented - Provider: Roc Vásquez RN) 20-80 mcg/min (15-60 mL/hr), intravenous , CONTINUOUS, Starting on Sun03/15/21 at 1445, Until Sun03/15/21 at 1748, Routine 1505 (Hold - Provider: Roc Vásquez RN - Reason: Order parameters not met) PRN Medication Order 03/13/2021 03/14/2021 03/15/2021 acetaminophen (TYLENOL) solution unit dose cup 995 mg(Linked Shaila up 1) 995 mg (rounded from 1,000 mg), oral, CO N, 1 dose, Starting on Sun03/15/21 at 1930, Until Sun03/15/21 at 1748, Pain, Routine, Recovery (only) acetaminophen (TYLENOL) tablet 1,000 mg(Linked Group 1) 1,000 mg, oral, PRN, 1 dose, Starting on Sun03/15/21 at 1930, Until Sun03/15/21 at 1748, Pain, Routine, Recovery (only) atropine 0.1 mg/mL syringe 0.5 mg 0.5 mg, intravenous, PRN, Starting on 03/15/21 at 1332, Until Sun03/15/21 at 1748, Symptomatic HR < 50, Routine, Recovery (only) bacitracin zinc 500 unit/gram ointment (CANCELED) 1328 (Given - Provider: Keren Swain MD - Comment: topical on packing) PRN, Starting on Sun03/15/21 at 1328, Until Sun 2 at 1411, Intraprocedure bupivacaine (PF) (MARCAINE) 0.5% 30 mL, EPINEPHrine (ADRENALIN) 30 mL (CANCELED) 1210 (Given - Provid er: Keren Swain MD - Comment: Topical on neuro patties) PRN, Starting on Sun03/15/21 at 1210, Un til Sun03/15/21 at 1411, Routine, Intraprocedure bupivacaine-EPINEPHrine (PF) 0.5 %-1:200,000 injection (CANCELED ) 1211 (Given - Provider: Keren Swain MD) PRN, Starting on Sun03/15/21 at 1211, Un til Sun03/15/21 at 1411, Routine, Intraprocedure dexAMETHasone (DECADRON) injection (CANCELED) 1327 (Given - Provider: Keren Swain MD - Comment: 10mg dexamethasone in 3ml 0.5% marcaine wepi 1:200,000 injected into nasal packing) PRN, Starting on Sun03/15/21 at 1327, Un til Sun03/15/21 at 1411, Routine, Intraprocedure diphenhydrAMINE (BENADRYL) injection 12.5 mg 12.5 mg, intravenous, PRN, 1 dose, Start ing on Sun03/15/21 at 1448, Until Sun03/15/21 at 1748, nausea, Routine, Recovery (only) fentaNYL citrate (PF) injection 25-50 mcg 25-50 mcg, intravenous, EVERY 5 MIN PRN, Starting on Sun03/15/21 at 1332, Until Sun03/15/21 at 1748, Pain, Routine, Recovery (only) ibuprofen (MOTRIN) tablet 600 mg (COMPLETED) 1448 (Given - Provider: Roc Vásquez RN) 600 mg, oral, PRN, 1 dose, Starting on T 03/15/21 at 1333, Until Discontinued, Pain, Routine, Recovery (only) metoclopramide (REGLAN) injection 10 mg (COMPLETED) 1506 (Given - Provider: Roc Vásquez RN) 10 mg, intravenous, PRN, 1 dose, Startin g on Sun03/15/21 at 1448, Until Sun03/15/21 at 1506, Nausea, Routine, Recovery (only) naloxone (NARCAN) injection 0.2 mg 0.2 mg, intravenous, PRN, Starting on 03/15/21 at 1333, Until Sun03/15/21 at 1748, Opioid Reversal, Routine, Recovery (only) ondansetron (PF) (ZOFRAN) injection 4 mg 4 mg, intravenous, PRN, 1 dose, Starting on Sun03/15/21 at 1333, Until Sun03/15/21 at 1748, Nausea, Vomiting, Routine, Recovery (only) oxyCODONE (ROXICODONE) immediate release tablet 5-10 mg 5-10 mg, oral, EVERY 30 MINUTES PRN, 2 d oses, Starting on Sun03/15/21 at 1333, Until Sun03/15/21 at 1748, Pain, Routine, Recovery (only) oxymetazoline (AFRIN) 0.05 % nasal spray 2 Pend[place] 2 P[place], nasal - both, EVERY 10 MINUTES PRN, Starting on Sun03/15/21 at 1336, Until Sun03/15/21 at 1748, epistaxis, STAT, Recovery (only) sodium chloride 0.9 % irrigation (CANCELED) 1211 (Given - Provider: Keren Swain MD) PRN, Starting on Sun03/15/21 at 1211, Un til Sun03/15/21 at 1411, Routine, Intraprocedure Linked Groups Order Group 1: acetaminophen (TYLENOL) solution unit dose cup 995 mgJump to med 995 mg (rounded from 1,000 mg), oral, CO N, 1 dose, Starting on Sun03/15/21 at 1930, Until Sun03/15/21 at 1748, Pain, Routine, Recovery (only) Or acetaminophen (TYLENOL) tablet 1,000 mgJump to med 1,000 mg, oral, PRN, 1 dose, Starting on Sun03/15/21 at 1930, Until Sun03/15/21 at 1748, Pain, Routine, Recovery (only) documented in this encounter Orders Medications Ordered That Might Not Have Count Last Ord ered Date First Ordered Date Been Administered acetaminophen (TYLENOL) solution unit dose 1 03/15 cup 995 mg acetaminophen (TYLENOL) tablet 1,000 mg 1 03/15/19 atropine 0.1 mg/mL syringe 0.5 mg 1 03/15/2021 ceFAZolin (ANCEF) syringe 2 g 1 03/15/2021 diphenhydrAMINE (BENADRYL) injection 12.5 1 2021 mg fentaNYL citrate (PF) injection 25-50 mcg 1 2021 lidocaine (PF) 10 mg/mL (1 %) injection 2 1 2021 mg naloxone (NARCAN) injection 0.2 mg 1 03/15/2021 ondansetron (PF) (ZOFRAN) injection 4 mg 1 022 oxyCODONE (ROXICODONE) immediate release 1 022 tablet 5-10 mg oxymetazoline (AFRIN) 0.05 % nasal spray 2 1 03/15 [place] Nursing Count Last Ordered Date First Ordered Date APPLY WARMING BLANKET 1 03/15/[address] PL[address] SEQUENTIAL COMPRESSION DEVICE 1 03/15/2021 Discharge Count Last Ordered Date First Ordered Date DISCHARGE PATIENT 1 03/15/2021 documented in this encounter Care Teams Music Therapy Specialist Relationship Specialty Start Date End Date Jonathan Elmore APRN PCP - General 12/29/[address] [place] [address] [address] [place] [address] documented as of this encounter
--- OUTSIDE RECORDS SUMMARY | 2021-12-09 01:57 | XMS_ITS | Encounter Summary ---
:1970 Author Organization [facility] Address [address] [place] [address] Care Team Providers Name Role Phone Jonathan Elmore APRN Primary Care Provider Reason for Visit Reason Comments Post-OP Follow Up Encounter Details Date Type Department Care Team Description 03/22/2021 Post-op Visit [facility] Keren Swain, ronic pansinusitis ENT- [facility] (Primary Dx) [address] [place] [address] [address] [phone] [facility], [address] [place] [address] (Wo rk) Social History Tobacco Use Types Packs/Day Years Used Date Former Smoker Cigarettes 04 03 Quit: 04/25/19 21 Smokeless Tobacco: Never Used Alcohol Use Standard Drinks/Week Comments Yes 7 (1 standard drink = 0.6 oz pure alcoho l) Sex Assigned at Date Recorded Not on file documented as of this encounter Progress Notes Keren Swain MD - 03/22/2021 1130 EST Progress Note Division of Otolaryngology, Head and Neck Surgery Date of Service: 03/22/21 Provider: Keren Swain MD Chief Complaint: Chief Complaint Patient presents with ??? Post-OP Follow Up History of Present Illness: Aileen Murphy is a 51 y.o. female who comes in today in follow up of chronic sinusitis with polyps status post ESS 03/15/21. She has been doing well since surgery but is feeling quite stuffy. She has been doing 5 saline rinses daily. Past medical/surgical/family/social history was reviewed and unchanged [...] rhinitis/sinusitis unable to visualize on anterior rhinoscopy;postoperative care Anesthesia: Cophenylcaine Endoscopy type: Rigid Procedure: Informed [...] middle turbinates normal in appearance and well medialized with copious fibrinous exudate at the face of the middle turbinate bilaterally between the middle turbinate head and the lateral nasal wall, which was sequentially suctioned aspen e. The gloved merocels were located and removed. The bilateral sinus cavities were patent with thin, healthy mucosa throughout. Minimal clot/mucus was suctioned free from the ethmoids, maxillary, and sphenoid sinuses bilaterally. Nasopharynx: Normal examination of the choanae, eustachian tube orifices, and posterior nasopharyngeal wall Assessment: 1. CRS with polyps status post ESS 03/15/21, doing well but with exuberant healing tissue at the bilateral middle turbinate heads, concerning for an area that could produce scarring. We discussed the necessity of regular rinsing until her next appointment to reduce this risk. 2. Asthma - pending pulmonology consultation ?? Plan: - At least 5 saline rinses daily with 1mg budesonide added to the last rinse of the day - Continue oral medications as prescribed - Pulmonology consultation on a nonurgent basis to initiate care and ongoing treatment - Follow up in 2 weeks Keren Swain MD 03/22/21 documented in this encounter Plan of Treatment Upcoming Encounters Date Type Specialty Care Team Description 02/17/2022 Office Visit Otolaryngology Keren Swain MD [address] [facility], [address] [place] [address] (Wo rk) documented as of this encounter Visit Diagnoses Diagnosis Chronic pansinusitis - Primary Other chronic sinusitis documented in this encounter Care Teams Secondary Social Studies Teacher Relationship Specialty Start Date End Date Jonathan Elmore APRN PCP - General 12/29/[address] [place] [address] [address] [place] [address] documented as of this encounter
--- OUTSIDE RECORDS SUMMARY | 2021-12-09 01:57 | XMS_ITS | Clinical Summary ---
:1970 Author Organization [facility] Address [address] [place] [address] Care Team Providers Name Role Phone Jonathan Elmore APRN Primary Care Provider Allergies No known active allergies Medications Medication Sig Dispensed Refills Start Date End Date Status montelukast (SINGULAIR) Take by mouth 0 Active 10 mg tablet daily. budesonide/formoterol Inhale as 0 Active fumarate (SYMBICORT directed. INHALATION) famotidine (PEPCID) 20 Take 20 mg by 0 Active mg tablet mouth daily. cetirizine (ZYRTEC) 10 Take 10 mg by 0 Active mg tablet mouth daily. oxyCODONE (ROXICODONE) Take 1 Tablet by 2 Tablet 0 03/15/2021 Active 5 mg immediate release mouth every 4 tablet hours as needed for Pain. Daily Max: 30 mg Additional Information Patient not taking. Reported on 11/04/2021 mupirocin (BACTROBAN) 2 % Topically as directed BID, 90 g 3 04/08/2021 Active ointment three 30 gm tubes for 30 days budesonide (PULMICORT) 0.5 2mL in sinus rinse kit 360 mL 3 09/26/2021 Active mg/2 mL nebulizer suspension twice daily omeprazole (PRILOSEC) 40 mg 0 10/17/2021 Active capsule Active Problems Problem Noted Date Other chronic sinusitis 01/26/2021 Overview: Added automatically from request for nitin simmons [id number] Encounters Date Type Specialty Care Team Description 12/07/2021 Lab Requisition Clinical Laboratory Outr Resulting Lab, Provider 11/22/2021 Lab Requisition Clinical Laboratory Outr Resulting Lab, Provider 11/04/2021 Office Visit Otolaryngology Keren Swain Chronic pansinusitis (Primary Dx) 09/20/2021 Refill Otolaryngology Keren Swain, Medicat ions Refill from Last 3 Months Immunizations Name Administration Dates Next Due Covid-19 mRNA Vaccine (PFIZER COVID-19) 12/15/2020, 03/10/19 21, 02/19/2020 PF 0.3 ml IM (12 yrs+) Hepatitis B Vaccine Adult IM 11/11/2014, 06/08/2014, 015 Influenza Vaccine =>3yo Split IM 01/01/2017 Influenza Vaccine =>3yo Split 04/25/2012, 03/16/2011 Preservative Free IM Mumps Vaccine SQ 04/06/2014 Rubella Vaccine SQ 04/06/2014 Tdap (BOOSTRIX) Vaccine =>7YO IM 02/25/2008 Varicella (Chickenpox) vaccine (VARIVAX) 04/06/2014 SQ Surgical History Surgery Date Site/Laterality Comments NASAL POLYP SURGERY Medical History Medical History Date Comments Environmental allergies History of general anesthesia Nausea & vomiting 03/10/21- after previo us nasal polyp removal Asthma 03/10/21- uses rescue once per week; no recent ED trips; unk nown triggers per pt GERD (gastroesophageal reflux disease) - famotidine, a few times per week, usually at night whe n laying flat, 2 pillows Chronic pansinusitis sinus polyps, plann ed surgery03/15/21 Depression Kidney anomaly, congenital per H+P Family History Medical History Relation Name Comments Heart Disease Father afib Hypertension Father Relation Name Status Comments Father Social History Tobacco Use Types Packs/Day Years Used Date Former Smoker Cigarettes 04 03 Quit: 04/25/19 21 Smokeless Tobacco: Never Used Alcohol Use Standard Drinks/Week Comments Yes 7 (1 standard drink = 0.6 oz pure alcoho l) Sex Assigned at Date Recorded Not on file Last Filed Vital Signs Vital Sign Reading Time Taken Comments Blood Pressure 93/62 03/15/2021 1530 EST Pulse - - Temperature 36.1 ??C (97 ??F) 03/15/2021 1530 EST Respiratory Rate 15 03/15/2021 1530 EST Oxygen Saturation 95% 03/15/2021 1530 EST Inhaled Oxygen Concentration - - Weight 99.8 kg (220 lb) 03/10/2021 1421 EST Height 177.8 cm (5' 10) 03/10/2021 1421 EST Body Mass Index 31.57 03/10/2021 1421 EST Plan of Treatment Upcoming Encounters Date Type Specialty Care Team Description 02/17/2022 Office Visit Otolaryngology Keren Swain MD [address] [facility], [address] [place], [place] [address] (Wo rk) Health Maintenance Due Date Last Done Comments Asthma Action Plan 1970 Hepatitis C Screen 1970 Lung Cancer Screening 1970 Lung Function Test (Spirometry) 1970 COVID-19 Vaccine (4 - Booster for 02/09/2021 12/15/2020, , Pfizer series) 02/19/2020 Procedures Procedure Name Priority Date/Time Associated Diagnosis Comme nts LYME AB Routine 11/22/2021 16:08 EDT Results for this procedure are i n the results section . from Last 3 Months Results LYME AB (11/22/2021 16:08 EDT) Pathologist Sig nature Lyme Ab Negative Negative [facility] Specimen Blood - Venous blood (substance) Performing Organization Address City/State/ZIP Code Phon e Number [facility] [address] [place] [address] SERVICES from Last 3 Months Insurance Payer Benefit Plan / Subscriber ID Effective Dates Phone Addre ss Type Group [facility] [id number] [phone] [id number] Counts include 234 beds at the [facility] [address] [phone] Clonava,Aileen E Personal/Family Self 1970 [address] (Home) [place] [address] Clonava,Aileen E Personal/Family Self 1970 [address] [place] [address] Katherine,Aileen E Personal/Family Self 1970 [address] ([address]) [place] [address] Care Teams Information Management Specialist Relationship Specialty Start Date End Date Jonathan Elmore APRN PCP - General 12/29/20 [facility] [address] [place] [address]
--- OUTSIDE RECORDS SUMMARY | 2021-12-09 01:57 | XMS_ITS | Encounter Summary ---
:1970 Author Organization [facility] Address [address] [place] [id number] Care Team Providers Name Role Phone Jonathan Elmore APRN Primary Care Provider Reason for Visit Reason Onset Date Comments COVID-19 04/24/2021 Pre-Appt Test Encounter Details Date Type Department Care Team Description 04/24/2021 Telephone [facility] - Man Swain MD COVID-19 (Pre-Appt [employer] [address] [facility] Test) [address] [place] [address] [address]ana Horan [address] [place] [address] (Wo rk) Social History Tobacco Use Types Packs/Day Years Used Date Former Smoker Cigarettes 1 30 Quit: 04/25/19 21 Smokeless Tobacco: Never Used Alcohol Use Standard Drinks/Week Comments Yes 7 (1 standard drink = 0.6 oz pure alcoho l) Sex Assigned at Date Recorded Not on file documented as of this encounter Miscellaneous Notes Telephone Encounter - Stefany Waters - 04/24/2021 1858 EST Patient is going to [facility] to get COVID-19 testing prior to procedure on 05/06. Control System Computer Scientist explained to patient they need to be tested on 05/02 or 05/03 in order to get results back in time. Control System Computer Scientist faxed order and will verify it was received. documented in this encounter Plan of Treatment Upcoming Encounters Date Type Specialty Care Team Description 02/17/2022 Office Visit Otolaryngology Keren Swain MD [address] [facility], [address] [place], [place] [address] (Wo rk) documented as of this encounter Visit Diagnoses Not on filedocumented in this encounter Care Teams Night Auditor Relationship Specialty Start Date End Date Jonathan Elmore APRN PCP - General 12/29/[address] [place] [address] [address] [place] [address] documented as of this encounter
--- OUTSIDE RECORDS SUMMARY | 2021-12-09 01:57 | XMS_ITS | Encounter Summary ---
:1970 Author Organization [facility] Address [address] [place] [address] Care Team Providers Name Role Phone Jonathan Elmore APRN Primary Care Provider Reason for Referral Consult (See Order Priority) - Receiving Office to Obtain Authorization Specialty Diagnoses / Procedures Referred By Contact Refer red To Contact Diagnoses Chronic pansinusitis Uncomplicated asthma, unspecified asthma severity, unspecified whether persistent Keren Swain MD [address] [place] [phone] Referral ID Status Reason Start Expiration Visits Visits Date Date Requested Authorized [id number] Receiving Office Specialty 1 1 to Obtain Services 2 Authorization Required Question Answer Reason for Request: please evaluate for asthma Practice Site (External Referral Only): [facility] Reason for Visit Reason Comments Follow-up Encounter Details Date Type Department Care Team Description 07/29/2021 Office Visit [facility] Keren Swain, Chr onic pansinusitis (Primary Dx); ENT- [facility] Uncomplicated asthma, unspecified asthma severity, unspecified whether persistent [address] [place] [address] [phone] [place] [phone] (Wo rk) Social History Tobacco Use Types Packs/Day Years Used Date Former Smoker Cigarettes 04 03 Quit: 04/25/19 21 Smokeless Tobacco: Never Used Alcohol Use Standard Drinks/Week Comments Yes 7 (1 standard drink = 0.6 oz pure alcoho l) Sex Assigned at Date Recorded Not on file documented as of this encounter Progress Notes Keren Swain MD - 07/29/2021 0845 EDT Progress Note Division of Otolaryngology, Head and Neck Surgery Date of Service: 07/29/21 Provider: Keren Swain MD Chief Complaint: Chief [...] are good. She has no complaints today. She has not heard from pulmonology to date. mild Nasal obstruction mild Nasal drainage no Loss of smell no PND mild Itchy Nose/eyes mild Sneezing mild Cough no Ear fullness no Facial pain/pressure Past medical/surgical/family/social history was reviewed and unchanged [...] Not Examined Procedure: Endoscopy Pre-procedure Dx: CRS Post-procedure Dx: same Indication: evaluation of symptoms [...] in appearance and middle turbinates normal in appearance. Left middle turbinate with a small synechiae to the lateral wall which was lysed with an up through cut. The bilateral sinus cavities are widely patent with thin, healthy mucosa throughout. Therewas clear mucus extending from the left MT synechiae to the nasopharynx consistent with recirculation. Nasopharynx: Normal examination of the choanae, eustachian tube orifices, and posterior nasopharyngeal wall Investigations: 07/29/21 SNOT-22: 5 Assessment: 1. CRS with polyps??status post ESS 03/15/21. Left MT to lateral wall synechiae was lysed today. Inflammation is well suppressed with current treatments, will continue budesonide 1mg daily in rinses. 2. Asthma - pending pulmonology consultation ?? Plan:?? -??Daily 1mg budesonide rinse - Pulmonology consultation on a nonurgent basis to initiate care and ongoing treatment; this was resubmitted to [facility] - Follow up in??3 months Keren Swain MD 07/29/21 documented in this encounter Plan of Treatment Upcoming Encounters Date Type Specialty Care Team Description 02/17/2022 Office Visit Otolaryngology Keren Swain MD [address] [facility], [address] [place], [place] [phone] (Wo rk) Scheduled Referrals Name Type Priority Associated Order Schedule Diagnoses AMB CONS/FOLLOW Outpatient Routine/Next Chronic Expected: UP PULMONARY Referral Available pansinusitis 08/29/2021 Uncomplicated (Approximate), asthma, Expires: unspecified asthma 3 severity, unspecified whether persistent documented as of this encounter Visit Diagnoses Diagnosis Chronic pansinusitis - Primary Other chronic sinusitis Uncomplicated asthma, unspecified asthma severity, unspecified whether persistent documented in this encounter Care Teams Life Underwriter Relationship Specialty Start Date End Date Jonathan Elmore, QUALITY CONTROL CHEMIST PCP - General 12/29/[address] [place] [address] [address] [place] [address] documented as of this encounter
--- OUTSIDE RECORDS SUMMARY | 2021-12-09 01:58 | XMS_ITS | Encounter Summary ---
:1970 Author Organization [facility] Address [address] [place] [address] Care Team Providers Name Role Phone Jonathan Elmore APRN Primary Care Provider Reason for Visit Reason Onset Date Comments COVID-19 01/24/2021 Appointment Related 01/24/2021 Encounter Details Date Type Department Care Team Description 01/24/2021 Telephone [facility] Khushi Swain MD COVID-19; Appointment ENT- [facility] 111 [facility] Related [address] [place] [address] Pavilion, [place] [phone] (Wo rk) Social History Tobacco Use Types Packs/Day Years Used Date Former Smoker Cigarettes 1 30 Smokeless Tobacco: Never Used Alcohol Use Standard Drinks/Week Comments Yes 4 (1 standard drink = 0.6 oz pure alcoho l) Sex Assigned at Date Recorded Not on file documented as of this encounter Miscellaneous Notes Telephone Encounter - Joi Vazquez - 01/24/2021 1023 EST Patient called about her Sinus's. She is clogged up, and breathing is difficult. Called to ask for potential treatment options she can take prior to her appt. While reviewing her appt I noticed that a covid test was ordered so I asked if she had done it yet. She informed me that she was told by Covid scheduling that a rapid test was sufficient. This is not my understanding of our protocols so I told her we would have to reschedule. She said she can't wait for another appt and didn't want to cancel as her symptoms are putting her in a great deal of distress. documented in this encounter Plan of Treatment Upcoming Encounters Date Type Specialty Care Team Description 02/17/2022 Office Visit Otolaryngology Keren Swain MD 111 [facility], [address] [place], [place] [phone] (Wo rk) documented as of this encounter Visit Diagnoses Not on filedocumented in this encounter Care Teams Applied Behavior Science Specialist Relationship Specialty Start Date End Date Jonathan Elmore APRN PCP - General 12/29/[address] [address] [address] [place] [address] documented as of this encounter
--- OUTSIDE RECORDS SUMMARY | 2021-12-09 01:58 | XMS_ITS | Encounter Summary ---
:1970 Author Organization [facility] Address [address] [place] [address] Care Team Providers Name Role Phone Jonathan Elmore APRN Primary Care Provider Reason for Visit Auth/Cert Specialty Diagnoses / Procedures Referred By Contact Refer red To Contact Diagnoses Other chronic sinusitis Chronic pansinusitis Procedures KS REPAIR OF NASAL SEPTUM KS NASAL/SINUS NDSC TOT W/SPHENDT W/SPHEN TISS RMVL KS NASAL SCOPY,RMV TISS MAXILL SINUS KS NASAL/SINUS NDSC W/RMVL TISS FROM FRONTAL SINUS KS STEREOTACTIC COMP ASSIST PROC,CRANIAL,EXTRADURAL Bilateral endoscopic sinus s urgery, possible septoplasty ENDOSCOPY, PARANASAL SINUSES, WITH TOTAL ETHMOIDECTOMY, SPHENOIDOTOMY, AND SPHENOID SINUS TISSUE REMOVAL [[id number]] ENDOSCOPY, NOSE AND PARANASA L SINUS, WITH MAXILLARY ANTROSTOMY AND MAXILLARY SINUS TISSUE EXCISION [[id number]] ENDOSCOPY, FRONTAL SINUS, WITH TISSUE EXCISION [[id number]] Referral ID Status Reason Start Date Expiration Date Visits Requ ested Visits Authorized [id number] 1 1 Encounter Details Date Type Department Care Team Description 03/15/2021 Hospital Encounter [facility] OR Keren Swain MD [address] [facility] e [address] [phone] [facility] Level 4 [place] [address] (Wo rk) Social History Tobacco [...] search ???[place] Med Sinus Rinse?? from the [employer] channel 2. Antibiotic Ointment: pea-sized amount to [...] Take 3 Tablets by 42 Tablet 0 2 04/05/2021 10 mg tablet mouth daily for 7 [...] Home or Self Care Wheelchair Home With [facility] nd documented in this encounter H&P Notes [...] SERVICE DATE: 03/15/2021 SURGEON: Keren Swain MD RUBBER BELT SPLICER: Van Vizcaino MD PREOPERATIVE DIAGNOSIS: 1. Chronic rhinosinusitis. POSTOPERATIVE DIAGNOSIS: Same. ANESTHESIA: General endotracheal. PROCEDURE: 1. Bilateral maxillary antrostomy with removal of tissue 2. Bilateral total ethmoidectomy 3. Bilateral sphenoidotomy with removal of diseased tissue 4. Use of Paxfire imaging guidance system FINDINGS: 1. Sinonasal polyposis [...] the anterior ethmoid arteries and optic nerves. [employer] protocol CT sinus scans were also downloaded to the Paxfire workstation. The [employer] system was used because of the extent [...] furtherfacilitated with Storz 0- and 30-degree endoscopes, Skicka Tårta instrumentation, and the [facility] odebrider. Prior to proceeding, bilateral nasal [...] 02/17/2022 Office Visit Otolaryngology Keren Swain MD [address] [place] [address], [address] [place], [place] [phone] (Wo rk) documented as [...] Pathologist Sig nature Organism ID No Growth [facility] Smear No Neutrophils Seen [facility] Smear No bacteria seen [facility] Specimen Tissue - Nasal Sinus, Sphenoid Performing Organization Address City/State/ZIP Code Phon e Number [facility] [address] [place] [address] SERVICES FUNGUS CULTURE/SMEAR (03/15/2021 13:03 EST) Pathologist Sig nature Organism ID No fungi isolated [facility] Fungal Smear No Fungi Seen [facility] Specimen Tissue - Nasal Sinus, Sphenoid Performing Organization Address City/State/ZIP Code Phon e Number [facility] [address] [place] [address] SERVICES (ABNORMAL) ANAEROBE CULTURE/SMEAR(INC. AEROBES), OTHER (03/15/2021 12:00 EST) Pathologist Sig nature Organism ID Few usual [facility] william-pharyngeal mike LABORATORY SERVICES Smear Moderate Neutrophils [facility] Present (A) LABORATORY SERVICES Smear Few Mixed Gram [facility] Positive Organisms (A) LABORATORY SERVICE S Specimen Tissue - Nasal Sinus, Maxillary Performing Organization Address City/State/ZIP Code Phon e Number [facility] [address] [place] [address] SERVICES FUNGUS CULTURE/SMEAR (03/15/2021 12:00 EST) Pathologist Sig nature Organism ID No fungi isolated [facility] Fungal Smear No Fungi Seen [facility] SERVICES Specimen Tissue - Nasal Sinus, Maxillary Performing Organization Address City/State/ZIP Code Phon e Number [facility] [address] [place] [address] SERVICES SURGICAL PATHOLOGY (03/15/2021 11:49 EST) Note to Patient The following [facility] pathology results CENTER have been [...] fungal organisms. SERVICES Attestation By the signature [facility] Electronica lly below, the attending CENTER signed by Marcello physician certifies LABORATORY Rosa chau MD on that they have 1) SERVICES 03/18/2021 at 1209 personally conducted a gross and/or microscopic examination of the described specimen(s), and/or personally interpreted the results of laboratory testing of the described specimen(s), and 2) personally rendered or confirmed the above diagnosis. Clinical History Other chronic [facility] sinusitis, chronic CENTER pansinusitis LABORATORY SERVICES Gross Description A. [facility] MEDICAL Received fresh in a suction container, labelled with proper patient identification (initials C, D) and bilateral sinus contents is serosanguineous fluid, within which are multiple pink-rodriguez soft tissue CENTE R fragments admixed with bloo d and mucus (12.0 x 11.0 x 2.0 cm in aggregate). Book Jacket Cover Machine Operator sections are submitted in A1-A3. LABORATORY SERVICES LEELA ARAUJO(ASCP) 03/16/2021 8:28 Performing Lab [facility] Scanned Images [facility] Specimen Tissue - Entire nasal sinus (body struct ure) Performing Organization Address City/[facility]/ZIP Code Phon e Number [facility] [address] [place] [address] SERVICES TEST, URINE (03/15/2021 9:13 EST) Test, NegativeComment: Negative [facility] Urine False negative LABORATORY results may occur in SERVICES women who are beyond 5-8 weeks gestation. Diagnosis of should be based on a correlation of test results with typical clinical signs and symptoms. Specimen Urine - Urine (substance) Performing Organization Address City/[facility]/ZIP Code Phon e Number [facility] [address] [place] [address] SERVICES documented in this encounter Visit Diagnoses Diagnosis Other chronic sinusitis - Primary documented in this encounter Admitting Diagnoses Diagnosis Other chronic sinusitis documented in this encounter Administered Medications Inactive Administered Medications - up to 3 most recent administrations Medication Order MAR Action Action Date Dose Rate Site acetaminophen (TYLENOL) solution unit do se cup 995 mg 995 mg (rounded from 1,000 mg), oral, KS N, 1 dose, Starting on Sun03/15/21 at [...] Symptomatic HR < 50, Routine, Recovery (only) diphenhydrAMINE (BENADRYL) injection 12. 5 mg 12.5 [...] oxymetazoline (AFRIN) 0.05 % nasal spray 2 Montgomery 2 Montgomery, nasal - both, EVERY 10 MINUTES PRN, [...] 03/15/2021 14:23 EST 30 mcg/min 22.5 mL/hr documented in this encounter Historical Medications This [...] g (COMPLETED) 1120 (Given - Provider: Barry Aguielra MD) 2 g, intravenous, Administer over 5 [...] Vásquez RN)1441 (Rate Change - Provider: Roc Vásquez RN)1459 (Rate Documented - Provider: Roc Vásquez RN) 20-80 mcg/min (15-60 mL/hr), intravenous , CONTINUOUS, Starting on Sun03/15/21 at 1445, Until Sun03/15/21 at 1748, Routine 1505 (Hold - Provider: Roc Vásquez RN - Reason: Order parameters not met) PRN Medication Order 03/13/2021 03/14/2021 03/15/2021 acetaminophen (TYLENOL) solution unit dose cup 995 mg(Linked Shaila up 1) 995 mg (rounded from 1,000 mg), oral, KS N, 1 dose, Starting on Sun03/15/21 at [...] oxymetazoline (AFRIN) 0.05 % nasal spray 2 Montgomery 2 [place], nasal - both, EVERY 10 MINUTES PRN, [...] 995 mg (rounded from 1,000 mg), oral, KS N, 1 dose, Starting on Sun03/15/21 at [...] 0.1 mg/mL syringe 0.5 mg 1 03/15/2021 bacitracin zinc 500 unit/gram ointment 1 bupivacaine (PF) (MARCAINE) 0.5% 30 mL, 1 03/15/19 EPINEPHrine (ADRENALIN) 30 mL bupivacaine-EPINEPHrine (PF) 0.5 1 03/15/2021 %-1:200,000 injection ceFAZolin (ANCEF) syringe 2 g 1 03/15/2021 dexAMETHasone (DECADRON) injection 1 03/15/2021 diphenhydrAMINE (BENADRYL) injection 12.5 1 2021 mg fentaNYL citrate (PF) injection 25-50 mcg 1 2021 lidocaine (PF) 10 mg/mL (1 %) injection 2 1 2021 mg naloxone (NARCAN) injection 0.2 mg 1 03/15/2021 ondansetron (PF) (ZOFRAN) injection 4 mg 1 oxyCODONE (ROXICODONE) immediate release 1 022 tablet 5-10 mg oxymetazoline (AFRIN) 0.05 % nasal spray 2 1 03/15 [place] sodium chloride 0.9 % irrigation 1 03/15/2021 Nursing Count Last Ordered Date First Ordered Date APPLY WARMING BLANKET 1 03/15/[address] SEQUENTIAL COMPRESSION DEVICE 1 03/15/2021 Discharge Count Last Ordered Date First Ordered Date DISCHARGE PATIENT 1 03/15/2021 documented in this encounter Care Teams Carriage Dogger Relationship Specialty Start Date End Date Jonathan Elmore APRN PCP - General 12/29/[address] [place] [address] [address] [place] [address] documented as of this encounter
--- OUTSIDE RECORDS SUMMARY | 2021-12-09 01:58 | XMS_ITS | Encounter Summary ---
:1970 Author Organization [facility] Address [address] [place] [address] Care Team Providers Name Role Phone Brock Alexander MD Primary Care Provider Encounter Details Date Type Department Care Team Description 01/07/2004 Results Only [facility] - Ger Aguiar MD conversion [address] [place] [address] [id number] Social History Tobacco Use Types Packs/Day Years Used Date Never Assessed Sex Assigned at Date Recorded Not on file documented as of this encounter Plan of Treatment Upcoming Encounters Date Type Specialty Care Team Description 02/17/2022 Office Visit Otolaryngology Keren Swain MD 111 [facility], [address] [place], [place] [address] (Wo rk) documented as of this encounter Procedures Procedure Name Priority Date/Time Associated Diagnosis Comme nts CYTOPATHOLOGY Routine 01/07/2004 0:00 EST Results for this procedure are i n the results section . documented in this encounter Results CYTOPATHOLOGY (01/07/2004 0:00 EST) Pathology Report: CYTOPATHOLOGY REPORT [facility] Reports generated via electronic interface contain marily ginal data; however they are lacking the format of the original re port. Caution should be taken when reading/interpreting unfo rmatted reports. Name: ? AILEEN MURPHY ? Accession #: ? [id number] : ? 1970 (Age: 34) ??F ?Collect Date: ? 1106/2003 Location: ? [facility] ? Receive Date : ? 01/11/2004 Provider: ?GER PETTIT MD Copy to: ? Specimen/Source: ?ThinPrep Pap Test, Cervix/ Endocervix Last Menstrual Period: ? 12/31/03 Hormonal/Contraceptive Status: ? Yes Other: ? HPVA - HPV testing requested if ASC-US on the current ThinPrep Pap test. ? SPECIMEN ADEQUACY ? Satisfactory for Evaluation - transformation zone component present GENERAL CATEGORIZATION ? Negative for Intraepithelial Lesion or Malignan cy ? Document reviewed and electronically signed by: ? SHANNON Paige(ASCP) ? Report Date: ??01/13/2004 15:44 End of Report Specimen Performing Organization Address City/State/ZIP Code Phon e Number [facility] [address] [place] [address] SERVICES [facility] [address] [place] [address] documented in this encounter Visit Diagnoses Not on filedocumented in this encounter Care Teams Veneer Supervisor Relationship Specialty Start Date End Date Brock Alexander MD PCP - General 01/22/09 06/24/[address] [place], [place] [address] documented as of this encounter
--- OUTSIDE RECORDS SUMMARY | 2021-12-09 01:58 | XMS_ITS | Encounter Summary ---
:1970 Author Organization [facility] Address [address] [place] [address] Care Team Providers Name Role Phone Jonathan Elmore APRN Primary Care Provider Reason for Visit Reason Onset Date Comments Medication Management 12/30/2020 Encounter Details Date Type Department Care Team Description 12/30/2020 Telephone [facility] Khushi Swain MD Medication Management [facility]- [address] [address] [address], [place] [phone] (Wo rk) Social History Tobacco Use Types [...] budesonide (PULMICORT) 0.5 2mL in sinus rinse 180 mL 3 1 09/26/2021 mg/2 mL nebulizer kit once daily suspension predniSONE (DELTASONE) 20 2 tabs once daily 14 Tablet 0 03/10/2021 mg tablet for 7 days documented in this encounter Miscellaneous Notes Telephone Encounter - Ramon Nelson RN - 12/30/2020 [id number] EDT [employer] receipt form pharmacy after 5 yesterday but resent identical scripts. elephone Encounter - Marce Prater - 12/30/2020 4868 EDT Patient state her pharmacy says they didn't get any prescriptions for her. Confirmed pharmacy info, please resend. documented in this encounter Plan of Treatment Upcoming Encounters Date Type Specialty Care Team Description 02/17/2022 Office Visit Otolaryngology Keren Swain MD [address] [facility], [address] [place] [address] (Wo rk) documented as of this encounter Visit Diagnoses Not on filedocumented in this encounter Discontinued Medications Medication Sig Discontinue Reason Start Date End Date budesonide (PULMICORT) 2mL in sinus rinse 12/29/2020 12/30/2020 0.5 mg/2 mL nebulizer kit once daily suspension predniSONE (DELTASONE) 20 2 tabs once daily 12/29/2020 12/30/2020 mg tablet for 7 days documented as of this encounter Care Teams Marketing Reporting Analyst Relationship Specialty Start Date End Date Jonathan Elmore APRN PCP - General 12/29/[address] [place] [address] [address] [place] [address] documented as of this encounter
--- OUTSIDE RECORDS SUMMARY | 2021-12-09 01:58 | XMS_ITS | Encounter Summary ---
:1970 Author Organization [facility] Address [address] [place] [address] Care Team Providers Name Role Phone Jonathan Elmore APRN Primary Care Provider Reason for Visit Auth/Cert Specialty Diagnoses / Procedures Referred By Contact Refer red To Contact Diagnoses Other chronic sinusitis Chronic pansinusitis Procedures MS REPAIR OF NASAL SEPTUM MS NASAL/SINUS NDSC TOT W/SPHENDT W/SPHEN TISS RMVL MS NASAL SCOPY,RMV TISS MAXILL SINUS MS NASAL/SINUS NDSC W/RMVL TISS FROM FRONTAL SINUS MS STEREOTACTIC COMP ASSIST PROC,CRANIAL,EXTRADURAL Bilateral endoscopic sinus s urgery, possible septoplasty ENDOSCOPY, PARANASAL SINUSES, WITH TOTAL ETHMOIDECTOMY, SPHENOIDOTOMY, AND SPHENOID SINUS TISSUE REMOVAL [[id number]] ENDOSCOPY, NOSE AND PARANASA L SINUS, WITH MAXILLARY ANTROSTOMY AND MAXILLARY SINUS TISSUE EXCISION [[id number]] ENDOSCOPY, FRONTAL SINUS, WITH TISSUE EXCISION [[id number]] Referral ID Status Reason Start Date Expiration Date Visits Requ ested Visits Authorized [id number] 1 1 Encounter Details Date Type Department Care Team Description 03/15/2021 Anesthesia Event [facility] OR Juan Diaz MD [address] [facility], Level 2 [place] [address] [place] [address] Makeda Aguilera MD [address] [place] [address] [place] [address] Anesthesia Record Procedure Summary Procedure Name Responsible Anesthesia Start Anesthesia Stop Anesthesiologist Time Time Bilateral endoscopic Juan Diaz MD 03/15/21 1100 1414 sinus surgery (N/A Nose) Events Date Time Event Comment 03/15/2021 1100 An Start The patient was re-evaluated immediately before moderate or deep sedation use, before anesthesia induction, or be fore the anesthesia procedure. 1100 An Start Data 1112 An Induction The patient was reevaluated immediately before moderate or deep sedation use and before anesthesia induc tion. 1116 An Intubation 1118 Anesthesia Ready 1157 Break I, MAKEDA AGUILERA MD , have reviewed the pertinent information of t his case with another qualified anesthesia provi william assuming care of this patient for the purpose of a brief (30 minutes) break. Handoff includin g a summary of red events, allergies, intra operative medications, and fluid status. I will b e readily available by mobile/pager for any additional information needed. McQuilki n 1158 Panfilo FGF increased to preserved Clic Absorber 1220 Panfilo FiO2 decrease fo r cautery 1303 An Surgeon on Cuff 1400 An Extubation 1403 an stop data 1414 Handoff to RN I completed my h andoff to the receiving nurse during which we: 1. Identified the patient 2. Identified the r esponsible provider 3. Reviewed the pertinent me dical history 4. Discussed the surgical course 5. Reviewed intra-op anesthesia management and i ssues during anesthesia 6. Set expectations for post-procedure period 7. Allowed opportunity for questions and acknowledgement of understanding. 1414 An Stop Name Total dexaMETHasone (DECADRON) injection 4 mg/mL (for IV dos es up to 10mg) 8 mg ondansetron (PF) (ZOFRAN) injection 4 mg lidocaine 2% (PF) injection glass vial 80 mg phenylephrine pre-filled syringe 4,000 mcg propOFol (DIPRIVAN) injection 1,882,628 mcg rocuronium 10 mg/mL vial 170 mg sugammadex 100 mg/mL 2 mL vial 200 mg midazolam 1 mg/mL 2 mL vial 2 mg ceFAZolin (ANCEF) syringe 2 g 2 g dexmedetomidine injection - vial 257.07 mcg acetaminophen 10 mg/ml 100 mL infusion 1,000 mg lactated ringers (LR) infusion 1,000 mL Agents Name O2 N2O Air Blood No blood administrations on file. Lines, Drains, and Airways Type Details Placement Removal Wound 03/15/21; 1138; Incision; 03/15/21 1138 by Right, Left, Inner; Nose; Jaleesa Guthrie RN surgical site for bilateral endoscopic sinus surgery; N Peripheral IV 03/15/21; 0959; 20; 1.25; 03/15/21 0959 by 03/15 1540 by B Bejarano Introcan; Allie Valencia, Roc Mccall, Anterior, Left; Forearm; RN Inserted by RN; 1; None; 2% Chlorhexidine with IPA; 03/15/21; 1540; Discharged; No complications, Catheter intact, Dressing applied Non-Surgical Airway 03/15/21; 1126 (created 03/15/21 1126 by 01/24 1400 by via procedure Makeda Aguilera MD Chan, Jack, MD documentation); 03/15/21; 1400 documented in this encounter Social History Tobacco Use Types Packs/Day Years Used Date Former Smoker Cigarettes 04 03 Quit: 04/25/19 21 Smokeless Tobacco: Never Used Alcohol Use Standard Drinks/Week Comments Yes 7 (1 standard drink = 0.6 oz pure alcoho l) Sex Assigned at Date Recorded Not on file documented as of this encounter OR Notes Anesthesia Postprocedure Evaluation - Juan Diaz MD - 03/15/2021 1414 EST Patient: Aileen Murphy Vital signs were reviewed with the recovery nurse. Complete vitals history is available in the Epic flowsheets. Vitals Value Taken Time BP 76/47 03/15/21 1409 Temp 36 ??C (96.8 ??F) 03/15/21 1409 Resp 19 03/15/21 1414 Pulse From Oximetry 60 BPM 03/15/21 1414 SpO2 98 % 03/15/21 1414 Vitals shown include unvalidated device data. Last Pain Score - Numeric Pain Level (Scale 1-10): 1 Type of Anesthesia - general Anesthesia Post Evaluation Post-procedure vitals reviewed and are stable. Level of consciousness: awake Temperature status: normothermia and patient returned to pre-procedure baseline Respiratory status: airway patent and stable Cardiovascular status: stable Hydration status: adequate Nausea/Vomiting: none Pain management: adequate Post-Op Assessment: patient tolerated procedure well with no complications Patient participation: able to participate Disposition: outpatient/home Anesthesia Complications: No apparent anesthesia complications nesthesia Preprocedure Evaluation - Makeda Aguilera MD - 03/15/2021 3448 EST Anesthesia Preprocedure Evaluation Patient Medical History, including Anesthesia History reviewed. Chart and Nursing Notes reviewed, including NPO status and Medication History. Additional ROS/History Findings: 51F w/ PMHx of astham, GERD, chronic sinusitis, presenting for bilateral endoscopic sinus surgery and possible septoplasty. Per chart review, patient was nauseous after a prior removal of her nasal polyps. Labs: Covid-19: Lab Results Component Value Date COVID-19 rt-PCR Result Negative 03/11/2021 CBC: Lab Results Component Value Date WBC 10.20 12/29/2020 Hemoglobin 14.8 12/29/2020 HCT 44.3 12/29/2020 PLT 383 (H) 12/29/2020 BMP: No results found for: NA, K, CL, CO2, BUN, CREATININE, GLUCOSES HBA1C: No results found for: HGBA1C Coags: No results found for: PROTIME, PTT, INR No results found. No Known Allergies Review of Systems Constitutional: Negative for chills and fever. HENT: Negative for hearing loss, sore throat and tinnitus. Eyes: Negative for blurred vision. Respiratory: Negative for cough, sputum production, shortness of breath, wheezing and stridor. Cardiovascular: Negative for chest pain and palpitations. Gastrointestinal: Negative for abdominal pain, heartburn, nausea and vomiting. Musculoskeletal: Negative for joint pain, myalgias and neck pain. Skin: Negative for rash. Neurological: Negative for dizziness, seizures, loss of consciousness and headaches. Past Medical History: Diagnosis Date ??? Asthma 03/10/21- uses rescue once per week; no recent ED trips; unknown triggers per pt ??? Chronic pansinusitis sinus polyps, planned surgery03/15/21 ??? Depression ??? Environmental allergies ??? GERD (gastroesophageal reflux disease) 03/10/21- famotidine, a few times per week, usually at night when laying flat, 2 pillows ??? History of general anesthesia ??? Kidney anomaly, congenital per H+P ? ? Nausea & vomiting 03/10/21- after previous nasal polyp removal Relevant Problems No relevant active problems Physical Exam Airway Mallampati: I Neck ROM: full Cardiovascular - normal exam Rhythm: regular Rate: normal Dental - normal exam Pulmonary - normal exam Breath sounds clear to auscultation (-) stridor Abdominal Anesthesia Plan ASA 2 Anesthesia Type - general, to include TIVA. Anesthesia plan and risks discussed. Informed consent obtained from patient. Specific risks discussed were headache, stroke, myocardial infarction, nausea, vomiting and dental injury. Code status discussed? No The preoperative history and physical which was performed within 30 days of this procedure, has beenreviewed and the clinically appropriate elements of the physical examination have been repeated. There are no changes to the documented history and physical or, if so, such changes are documented in this note PAT Note Notes from 02/12/21 through 03/14/21 No notes of this type exist for this encounter. nesthesia Procedure Notes - Makeda Aguilera MD - 03/15/2021 1125 ESTAssociated Order(s): Airway Airway Date/Time: 03/15/2021 11:16 Urgency: elective General Information and Staff Patient location during procedure: OR Anesthesiologist: Marcos Peterson DO Resident/AUTOMOTIVE PARTS COUNTERPERSON: Makeda Aguilera MD Performed: resident/AUTOMOTIVE PARTS COUNTERPERSON/AA Indications and Patient Condition Indications for airway management: anesthesia Sedation level: GA Preoxygenated: yes Patient position: sniffing Ventilation assessment: 1 - Easy Final Airway Details Final airway type: endotracheal airway Successful airway: ETT and KUSH tube Cuffed: yes Successful intubation technique: direct laryngoscopy Facilitating devices/methods: intubating stylet Endotracheal tube insertion site: oral Blade: Peter Blade size: #3 ETT size (mm): 7.0 Cormack-Lehane Classification: grade I - full view of glottis Placement verified by: chest auscultation and capnometry Measured from: lips ETT to lips (cm): 22 Number of attempts at approach: 1 nesthesia Preprocedure Evaluation - Marcos Peterson - 03/15/2021 1124 EST Images from the original note were not included. Anesthesia Preprocedure Evaluation Patient Medical History, including Anesthesia History reviewed. Chart and Nursing Notes reviewed, including NPO status and Medication History. Additional ROS/History Findings: ??Bilateral endoscopic sinus surgery, possible septoplasty (N/A Nose) [85469 CPT(R)] - TIVA anesthesia (Collected: 03/11/2021 16:48) COVID-19 TESTING Order: [id number] Status: Final result ?Visible to patient: Yes (seen) Next appt: 03/22/2021 at 11:30 in Otolaryngology (Keren Swain MD) Specimen Information: Swab ?? Ref Range & Units 4 d ago 2 mo ago COVID-19 rt-PCR Result Negative Negative Anesthesia History Environmental allergies History of general anesthesia Nausea & vomiting Asthma GERD (gastroesophageal reflux disease) Chronic pansinusitis Depression Kidney anomaly, congenital Surgical History NASAL POLYP SURGERY Substance History Smoking Status: Former Smoker - 30 pack years Quit Smokin04/25/20 Smokeless Tobacco Status: Never Used Alcohol use: Yes; 7.0 standard drinks per week Drug use: Not Currently No Known Allergies Review of Systems Constitutional: Negative for chills and fever. HENT: Positive for congestion. Negative for sore throat. Nasal drip Respiratory: Negative for cough, shortness of breath and wheezing. Asthma, not presently active with only occasional rescue inhalers Cardiovascular: Negative for chest pain, palpitations and orthopnea. Gastrointestinal: Negative for heartburn, nausea and vomiting. Remote GERD Musculoskeletal: Negative for neck pain. Neurological: Negative for headaches. Psychiatric/Behavioral: The patient is nervous/anxious. Past Medical History: Diagnosis Date ??? Asthma 03/10/21- uses rescue once per week; no recent ED trips; unknown triggers per pt ??? Chronic pansinusitis sinus polyps, planned surgery03/15/21 ??? Depression ??? Environmental allergies ??? GERD (gastroesophageal reflux disease) 03/10/21- famotidine, a few times per week, usually at night when laying flat, 2 pillows ??? History of general anesthesia ??? Kidney anomaly, congenital per H+P ? ? Nausea & vomiting 03/10/21- after previous nasal polyp removal Relevant Problems No relevant active problems Physical Exam Airway Mallampati: II TM distance: >3 FB Neck ROM: full Cardiovascular Rhythm: regular Rate: normal (-) murmur Dental - normal exam Comments: Caps/crows/fillings, full with some misaligned, none loose Pulmonary Breath sounds clear to auscultation (-) decreased breath sounds, wheezes Abdominal (+) obese BP 125/77 (BP Cuff Location: Right arm) Temp 36.6 ??C (97.9 ??F) (Temporal) Resp 16 SpO2 97% Results for AILEEN MURPHY ( ) as of 03/15/2021 11:25 Ref. Range 03/15/2021 09:13 Test, Urine Latest Ref Range: Negative Negative Anesthesia Plan ASA 2 Anesthesia Type - general, to include intravenous induction and TIVA. Anesthesia Plan Details to include - Processed EEG Monitor. Anesthesia plan and risks discussed. Informed consent obtained from patient. Specific risks discussed were vomiting, headache and nausea (Serious, life- threatening complications). PAT Note Notes from 02/13/21 through 03/15/21 No notes of this type exist for this encounter. documented in this encounter Plan of Treatment Upcoming Encounters Date Type Specialty Care Team Description 02/17/2022 Office Visit Otolaryngology Keren Swain MD [address] [facility], [address] [place], [place] [address] (Wo rk) documented as of this encounter Procedures Procedure Name Priority Date/Time Associated Comments Diagnosis ANESTHESIA Routine 03/15/2021 11:16 Results for this INTUBATION EST procedure are i n the results section. documented in this encounter Results MS AN ELECTIVE ENDOTRACHEAL AIRWAY (03/15/2021 11:16 EST) Narrative Makeda Aguilera MD - 03/15/2021 11:16 EST Makeda Aguilera MD ? 03/15/2021 11:26 Airway Date/Time: 03/15/2021 11:16 Urgency: elective General Information and Staff Patient location during procedure: OR Anesthesiologist: Marcos Peterson DO Resident/AUTOMOTIVE PARTS COUNTERPERSON: Makeda Aguilera MD Performed: resident/AUTOMOTIVE PARTS COUNTERPERSON/AA Indications and Patient Condition Indications for airway management: anest hesia Sedation level: GA Preoxygenated: yes Patient position: sniffing Ventilation assessment: 1 - Easy Final Airway Details Final airway type: endotracheal airway Successful airway: ETT and KUSH tube Cuffed: yes Successful intubation technique: direct laryngoscopy Facilitating devices/methods: intubating stylet Endotracheal tube insertion site: oral Blade: Peetr Blade size: #3 ETT size (mm): 7.0 Cormack-Lehane Classification: grade I - full view of glottis Placement verified by: chest auscultatio n and capnometry Measured from: lips ETT to lips (cm): 22 Number of attempts at approach: 1 documented in this encounter Visit Diagnoses Not on filedocumented in this encounter Administered Medications Inactive Administered Medications - up to 3 most recent administrations Medication Order MAR Action Action Date Dose Rate Site acetaminophen (OFIRMEV) IV Given 03/15/2021 13:32 EST 1,000 mg solution intravenous, PRN, Starting on Sun03/15/21 at 1332, Until Sun03/15/21 at 1414, Routine, Anesthesia Intraprocedure ceFAZolin (ANCEF) syringe 2 g Given 03/15/2021 11:20 EST 2 g 2 g, intravenous, Administer over 5 Minutes, PRE-OP ONCE, 1 dose, On Sun03/15/21 at 1045, Routine dexAMETHasone (DECADRON) injection Given 03/15/2021 13:40 EST 4 mg intravenous, PRN, Starting on Sun03/15/21 at 1134, Until Sun03/15/21 at 1414, Routine, Anesthesia Intraprocedure Given 03/15/2021 11:34 EST 4 mg dexmedeTOMIDine (PRECEDEX) Rate Change 03/15/2021 13:33 0.5 mcg/kg /hr 0.499 mL/hr injection EST intravenous, PRN, Starting on Sun03/15/21 at 1109, Until Sun03/15/21 at 1414, Routine, Anesthesia Intraprocedure Rate Change 03/15/2021 11:57 EST 1 mcg/kg/hr 0.998 mL/hr New Bag 03/15/2021 11:12 EST 0.7 mcg/kg/hr 0.699 mL/hr lactated ringers (LR) infusion Rate Change 03/15/2021 14:11 EST 1000 mL/hr at 25 mL/hr, intravenous, CONTINUOUS, Starting on Sun03/15/21 at 0930, Until Sun03/15/21 at 1748, Routine, Preprocedure Continued by Anesthesia 03/15/2021 11:00 EST 25 mL/hr New Bag 03/15/2021 10:29 EST 25 mL/hr lidocaine (PF) 20 mg/mL (2 %) injection Given 03/15/2021 11:12 EST 80 mg intravenous, PRN, Starting on Sun03/15/21 at 1112, Until Sun03/15/21 at 1414, Routine, Anesthesia Intraprocedure midazolam (PF) (VERSED) injection Given 03/15/2021 11:02 EST 2 mg intravenous, PRN, Starting on Sun03/15/21 at 1102, Until Sun03/15/21 at 1414, Routine, Anesthesia Intraprocedure ondansetron (PF) (ZOFRAN) injection Given 03/15/2021 13:40 EST 4 mg intravenous, PRN, Starting on Sun03/15/21 at 1340, Until Sun03/15/21 at 1414, Routine, Anesthesia Intraprocedure phenylephrine HCl in 0.9% NaCl Restarted 03/15/2021 12:59 EST 20 mcg/min 12 mL/hr injection intravenous, PRN, Starting on Sun03/15/21 at 1159, Until Sun03/15/21 at 1414, Routine, Anesthesia Intraprocedure Rate Change 03/15/2021 12:24 EST 40 mcg/min 24 mL/hr Rate Change 03/15/2021 12:08 EST 80 mcg/min 48 mL/hr propOFol (DIPRIVAN) injection Rate Change 03/15/2021 13:22 120 mcg/kg/min 71.856 intravenous, PRN, Starting on EST mL/hr Sun03/15/21 at 1112, Until Sun03/15/21 at 1414, Routine, Anesthesia Intraprocedure Given 03/15/2021 13:21 EST 20 mg Rate Change 03/15/2021 13:00 EST 100 mcg/kg/min 59.88 mL/hr rocuronium (ZEMURON) injection Given 03/15/2021 13:21 EST 20 mg intravenous, PRN, Starting on Sun03/15/21 at 1112, Until Sun03/15/21 at 1414, Routine, Anesthesia Intraprocedure Given 03/15/2021 12:46 EST 20 mg Given 03/15/2021 11:58 EST 50 mg sugammadex (BRIDION) injection Given 03/15/2021 13:42 EST 200 mg intravenous, PRN, Starting on Sun03/15/21 at 1342, Until Sun03/15/21 at 1414, Routine, Anesthesia Intraprocedure documented in this encounter Care Teams Plumbing Service Technician Relationship Specialty Start Date End Date Jonathan Elmore APRN PCP - General 12/29/[address] [place] [address] [address] [place] [id number] documented as of this encounter
--- OUTSIDE RECORDS SUMMARY | 2021-12-09 01:58 | XMS_ITS | Encounter Summary ---
:[address] [facility] Address [address] [place] [address] Care Team Providers Name Role Phone Unknown, Provider Primary Care Provider Jonathan Elmore APRN Primary Care Provider Encounter Details Date Type Department Care Team Description 12/24/2020 Lab Requisition [facility] Outr Resulting Lab, Pathology & Laboratory Provider [facility] [address] [place] [address] Social History Tobacco Use Types Packs/Day Years Used Date Never Assessed Sex Assigned at Date Recorded Not on file documented as of this encounter Plan of Treatment Upcoming Encounters Date Type Specialty Care Team Description 02/17/2022 Office Visit Otolaryngology Keren Swain MD [address] [facility], [facility] [address] [place], [place] [address] (Wo rk) documented as of this encounter Procedures Procedure Name Priority Date/Time Associated Diagnosis Comme nts COVID-19 TEST [facility] Today 12/24/2020 13:10 LAB PCR EDT COVID-19 TESTING Routine 12/24/2020 13:10 Results for this EDT procedure are i n the results section. documented in this encounter Results COVID-19 TEST [facility] LAB PCR (12/24/2020 13:10 EDT) Specimen Swab - Entire nasopharynx (body structur e) Performing Organization Address City/State/ZIP Code Phon e Number [facility] [address] [place] [address] SERVICES COVID-19 TESTING (12/24/2020 13:10 EDT) COVID-19 rt-PCR Negative Negative [facility] MED[facility] Result Comment: [facility] This test [...] tions, patient history, and epidemiological informatio n. Performed on the HITbillsher Fusion instrument Performing Lab Crump [facility] Lab [facility] SERVICES Specimen Swab Performing Organization Address City/State/ZIP Code Phon e Number [facility] [address] [place] [address] SERVICES documented in this encounter Visit Diagnoses Not on filedocumented in this encounter Care Teams Camp Maintenance Supervisor Relationship Specialty Start Date End Date Unknown, Provider, PCP - General 06/25/18 12/28/20 Jonathan Elmore APRN PCP - General 12/29/[address] [place] [address] [address] [place] [address] documented as of this encounter
--- OUTSIDE RECORDS SUMMARY | 2021-12-09 01:58 | XMS_ITS | Encounter Summary ---
:1970 Author Organization [facility] Address [address] [place] [address] Care Team Providers Name Role Phone Jonathan Elmore APRN Primary Care Provider Reason for Referral Radiology Services (Routine/Next Available) - Authorization Not Required Specialty Diagnoses / Procedures Referred By Contact Refer red To Contact Diagnoses SOB (shortness of breath) Brittany Henley DO [facility] Procedures XR CHEST 2 VIEWS [address] [phone] Referral ID Status Reason Start Expiration Visits Visits Date Date Requested Authorized [id number] Authorization Not 1 1 Required 1 est (Routine/Next Available) - Authorization Not Required Specialty Diagnoses / Procedures Referred By Contact Refer red To Contact Diagnoses SOB (shortness of breath) Brittany Henley DO Procedures PULMONARY FUNCTION TESTING [address] [phone] Referral ID Status Reason Start Expiration Visits Visits Date Date Requested Authorized [id number] Authorization Not 1 1 Required 1 Encounter Details Date Type Department Care Team Description 12/30/2020 Orders Only [facility] Jonathan Elmore APRN SOB (shortness of Pulmonology & Critical 186 MEDICAL breat h) (Primary Dx) Care - [facility] [address] [place] [address] [place] [address] [phone] Social History Tobacco Use Types Packs/Day Years [...] Office Visit Otolaryngology Keren Swain MD 111 [facility], [address] [place], [place] [phone] (Wo rk) Scheduled Orders Name Type Priority Associated Diagnoses Order S chedule PULMONARY FUNCTION PFT Routine SOB (shortness of 1 Oc currences starting TESTING breath) 12/30/2020 unti l 06/30/2022 XR CHEST 2 VIEWS Imaging Routine SOB (shortness of Expect ed: 12/30/2020, breath) Expires: 2021 documented as of this encounter Visit Diagnoses Diagnosis SOB (shortness of breath) - Primary Shortness of breath documented in this encounter Care Teams Tank Refinisher Relationship Specialty Start Date End Date Jonathan Elmore APRN PCP - General 12/29/[address] [place] [address] [address] [place], [place] [phone] documented as of this encounter
--- OUTSIDE RECORDS SUMMARY | 2021-12-09 01:58 | XMS_ITS | Encounter Summary ---
:1970 Author Organization [facility] Address [address] [place] [address] Care Team Providers Name Role Phone Brock Alexander MD Primary Care Provider Encounter Details Date Type Department Care Team Description 06/24/2018 Hospital Encounter [facility]- Kay Unknown, Provider, [facility] [address] [facility] [phone] [place] [address] (Work) [phone] Social History Tobacco Use Types Packs/Day Years Used Date Never Assessed Sex Assigned at Date Recorded Not on file documented as of this encounter Discharge Disposition Disposition Code Departure Means Destination Home or Self Penitentiary documented in this encounter Plan of Treatment Upcoming Encounters Date Type Specialty Care Team Description 02/17/2022 Office Visit Otolaryngology Keren Swain MD [address] [facility], [address] [place], [place] [address] (Wo rk) documented as of this encounter Visit Diagnoses Not on filedocumented in this encounter Care Teams Setter Induction Heating Equipment Relationship Specialty Start Date End Date Brock Alexander MD PCP - General 01/22/09 06/24/[address] [place] [address] [place], [place] [phone] documented as of this encounter
--- OUTSIDE RECORDS SUMMARY | 2021-12-09 01:58 | XMS_ITS | Encounter Summary ---
:1970 Author Organization [facility] Address [address] [place] [address] Care Team Providers Name Role Phone Brock Alexander MD Primary Care Provider Encounter Details Date Type Department Care Team Description 02/06/2005 Results Only [facility] - Ger Aguiar MD conversion [address], [place] [address] Social History Tobacco Use Types Packs/Day Years Used Date Never Assessed Sex Assigned at Date Recorded Not on file documented as of this encounter Plan of Treatment Upcoming Encounters Date Type Specialty Care Team Description 02/17/2022 Office Visit Otolaryngology Keren Swain MD 111 [facility], Level 4 [place], [place] [phone] (Wo rk) documented as of this encounter Procedures Procedure Name Priority Date/Time Associated Diagnosis Comme nts CYTOPATHOLOGY Routine 02/06/2005 0:00 EST Results for this procedure are i n the results section . documented in this encounter Results CYTOPATHOLOGY (02/06/2005 0:00 EST) Pathology Report: CYTOPATHOLOGY REPORT [facility] Reports generated via electronic interface contain marily ginal data; however they are lacking the format of the original re port. Caution should be taken when reading/interpreting unfo rmatted reports. Name: ? AILEEN MURPHY ? Accession #: ? [id number] : ? 1970 (Age: 35) ??F ?Collect Date: ? 07/2004 Location: ? [facility] ? Receive Date : ? 02/08/2005 Provider: ?GER PETTIT MD Copy to: ? Specimen/Source: ? ThinPrep Pap Test, Cervix/Endocervix, processed on P[employer]ge ThinPrep Imaging System, with manual evaluation Last Menstrual Period: ? Previous Gynecologic Pathology: ? GALDINO: Paps until ASC-US: Favor reactive, paps since [facility] Treatment History: ? Cryotherapy: 1990 Other: ? HPVA - HPV testing requested if ASC-US on the current ThinPrep Pap test. ? SPECIMEN ADEQUACY ? Satisfactory for Evaluation - transformation zone component absent GENERAL CATEGORIZATION ? Negative for Intraepithelial Lesion or Malignan cy ? Document reviewed and electronically signed by: ? FATOU Reyes(ASCP) ? Report Date: ??02/09/2005 14:37 End of Report Specimen Performing Organization Address City/State/ZIP Code Phon e Number [facility] [address] [place] [address] SERVICES [facility] [address] [place] [address] documented in this encounter Visit Diagnoses Not on filedocumented in this encounter Care Teams Beekeeper Farmer Relationship Specialty Start Date End Date Brock Alexander MD PCP - General 01/22/09 06/24/[address] [place] [address] [place], [place] [phone] documented as of this encounter
--- OUTSIDE RECORDS SUMMARY | 2021-12-09 01:58 | XMS_ITS | Encounter Summary ---
:1970 Author Organization [facility] Address [address] [place] [id number] Care Team Providers Name Role Phone Jonathan Elmore APRN Primary Care Provider Reason for Visit Reason Onset Date Comments COVID-19 03/10/2021 Encounter Details Date Type Department Care Team Description 03/10/2021 Telephone [facility] - Keren Villa MD COVID-19 [facility] [id number] [place] [phone] (Wo rk) Social History Tobacco Use Types Packs/Day Years Used Date Former Smoker Cigarettes 04 03 Quit: 04/25/19 21 Smokeless Tobacco: Never Used Alcohol Use Standard Drinks/Week Comments Yes 7 (1 standard drink = 0.6 oz pure alcoho l) Sex Assigned at Date Recorded Not on file documented as of this encounter Miscellaneous Notes Telephone Encounter - Colin Miller - 03/10/2021 1506 EST 03/10 Patient called to get tested at [facility] tomorrow 03/11 for pre-procedure on 03/15 documented in this encounter Plan of Treatment Upcoming Encounters Date Type Specialty Care Team Description 02/17/2022 Office Visit Otolaryngology Keren Swain MD 111 [facility] 4 [place], [place] [phone] (Wo rk) documented as of this encounter Visit Diagnoses Not on filedocumented in this encounter Care Teams Field Administrative Assistant Relationship Specialty Start Date End Date Jonathan Elmore APRN PCP - General 12/29/[address] [place] [address] [address] [place] [address] documented as of this encounter
--- OUTSIDE RECORDS SUMMARY | 2021-12-09 01:58 | XMS_ITS | Encounter Summary ---
:1970 Author Organization [facility] Address [address] [place] [address] Care Team Providers Name Role Phone Jonathan Elmore APRN Primary Care Provider Encounter Details Date Type Department Care Team Description 03/10/2021 Hospital Encounter [facility] Pre-Surgical Testing [address] [place], [place] [address] Social History Tobacco Use Types Packs/Day Years Used Date Former Smoker Cigarettes 30 Quit: 04/25/19 21 Smokeless Tobacco: Never Used Alcohol Use Standard Drinks/Week Comments Yes 7 (1 standard drink = 0.6 oz pure alcoho l) Sex Assigned at Date Recorded Not on file documented as of this encounter Last Filed Vital Signs Vital Sign Reading Time Taken Comments Blood Pressure - - Pulse - - Temperature - - Respiratory Rate - - Oxygen Saturation - - Inhaled Oxygen Concentration - - Weight 99.8 kg (220 lb) 03/10/2021 1421 EST Height 177.8 cm (5' 10) 03/10/2021 1421 EST Body Mass Index 31.57 03/10/2021 1421 EST documented in this encounter Medications at Time [...] 7 days. documented as of this encounter Discharge Disposition Disposition Code Departure Means Destination Home or Self Care documented in this encounter Progress Notes Ferdinand Malagon RN - 03/10/2021 0416 EST COVID 19 Screening Perioperative at time of PAT Please document by exception (only check those that apply). Have you had any of the following symptoms recently? No Yes Chronic ? Cough Shortness of breath or difficulty breathing Fever Chills Fatigue Muscle or body aches Severe Headache New loss of taste or smell Sore throat Congestion or runny nose Rash Nausea, vomiting, or diarrhea (rare in adults. More common in children) Please elaborate if yes: If a chronic symptom is reported use your judgement if an anesthesia review is needed. Have you been in close contact with someone who has been diagnosed with Covid 19? No (close contact, within 6 feet of any person known to have Coronavirus in the past 14 days) Vaccination Status: __x_ Pt states fully vaccinated, _x__ Verified in chart ___ Pt states unvaccinated -Do not instruct patient regarding COVID testing, let [facility] coordinate this -Communicate status on yellow form for DOS If patient develops any of these symptoms between now and their surgery date instruct them to call us back at [phone] to report symptoms Visitor Policy: Surgical & Procedural -Adult: 1 designated support person -Pediatrics: 2 designated support people - Inpatients are now permitted 2 designated support people per stay, only 1 may visit per day. One person is permitted to remain overnight (must be masked). - Pediatric Inpatients may have 2 designated support people per stay, both may be present at the same time. - Inpatient Psychiatry patients may have 2 designated (vaccinated) support people per stay, only 1 may visit per day - One healthy support person may accompany patients to outpatient appointments. Two healthy parents/guardians are permitted for pediatric patients. As a reminder, all support people are will be required to wear a mask that covers their nose and mouth for the entire time they are in the building. Anyone who cannot or will not wear a mask will be asked to leave. documented in this encounter OR Notes Preprocedure Instructions - Ferdinand Malagon RN - 03/10/2021 0510 EST Aileen Murphy has been instructed as follows regarding medication administration for the day of the scheduled procedure. Date of Surgery: 03/15/21 Instructions for Taking Medications Day of Surgery Medication Sig Last Dose Hold DOS Take DOS budesonide (PULMICORT) 0.5 mg/2 mL nebulizer suspension 2mL in sinus rinse kit once daily Follow surgeons directions budesonide/formoterol fumarate (SYMBICORT INHALATION) Inhale as directed. y famotidine (PEPCID) 20 mg tablet Take 20 mg by mouth daily. Y montelukast (SINGULAIR) 10 mg tablet Take by mouth daily. y documented in this encounter Plan of Treatment Upcoming Encounters Date Type Specialty Care Team Description 02/17/2022 Office Visit Otolaryngology Keren Swain MD 111 [facility], Level [address] [place], [place] [phone] (Wo rk) documented as of this encounter Visit Diagnoses Not on filedocumented in this encounter Discontinued Medications Medication Sig Discontinue Reason Start Date End Date predniSONE (DELTASONE) 20 2 tabs once daily Therapy completed 12/3003/10/2021 mg tablet for 7 days documented as of this encounter Historical Medications This list may reflect changes made after this encounter. Medication Sig Dispensed Refills Start Date End Date famotidine (PEPCID) 20 mg Take 20 mg by mouth 0 tablet daily. added in this encounter Care Teams Preparation Supervisor Canning Relationship Specialty Start Date End Date Jonathan Elmore APRN PCP - General 12/29/[address] [place] [address] [address] [place] [address] documented as of this encounter
--- OUTSIDE RECORDS SUMMARY | 2021-12-09 01:58 | XMS_ITS | Encounter Summary ---
:1970 Author Organization [facility] Address [address] [place] [address] Care Team Providers Name Role Phone Catarina Jonathangiovanny Keller APRN Primary Care Provider Reason for Referral Radiology Services (Routine/Next Available) - Specialty Report Received Specialty Diagnoses / Procedures Referred By Contact Refer red To Contact Diagnoses Keren Vaughan MD Procedures CT SINUSES WO CONTRAST CHG CT SCAN,MAXILLOFACIAL AREA,W/O CONTRAST 111 [facility] 4 [place] [phone] Referral ID Status Reason Start Date Expiration Date Visits V isits Requested Authorized [id number] Specialty 01/10/2021 04/10/2021 1 1 Report Received onsult (See Order Priority) - Closed Specialty Diagnoses / Procedures Referred By Contact Refer red To Contact Pulmonary Disease Diagnoses Chronic Keren Jaimes MD Ep5 Pulmonology 111 [facility] [address] [place], [place] Fax: [phone] Referral ID Status Reason Start Date Expiration Date Visits V isits Requested Authorized [id number] Closed Specialty 12/29/2020 1 1 Services Required Question Answer Reason for Request: please eval for adult onset asthma Reason for Visit Reason Comments Sinusitis Referral (Routine) - Receiving Office to Obtain Authorization Specialty Diagnoses / Procedures Referred By Contact Refer red To Contact Otolaryngology Diagnoses Chronic sinusitis, unspecified Jonathan Elmore APRN [place], Keren Triplett MD [address] [place] [phone] [place] [address] 4 [place] [address] Phone: Fax: Referral ID Status Reason Start Expiration Visits Visits Date Date Requested Authorized [id number] Receiving Office 1 1 to Obtain Authorization Encounter Details Date Type Department Care Team Description 12/29/2020 Office Visit [facility] Keren Swain, Chr onic pansinusitis ENT- [facility] (Primary Dx) [address] [place] [address] [facility] [address] [place] [phone] (Wo rk) Social History Tobacco Use Types Packs/Day Years Used Date Former Smoker Cigarettes 1 30 Smokeless Tobacco: Never Used Alcohol Use Standard Drinks/Week Comments Yes 4 (1 standard drink = 0.6 oz pure alcoho l) Sex Assigned at Date Recorded Not on file documented as of this encounter Ordered Prescriptions Prescription Sig Dispensed Refills Start Date End Date predniSONE (DELTASONE) 20 2 tabs once daily 14 Tablet 0 12/30/2020 mg tablet for 7 days budesonide (PULMICORT) 0.5 2mL in sinus rinse 180 mL 3 1 12/30/2020 mg/2 mL nebulizer kit once daily suspension documented in this encounter Progress Notes Tamar Gunn MD - 12/29/2020 1530 EDT Subjective: Patient ID: Aileen Murphy is an 50 y.o. female. Chief Complaint Patient presents with ??? Sinusitis HPI The patient is a 50 year old female with a PMH of asthma and environmental allergies who presents with persistent nasal congestion, and rhinorrhea. The patient states that these symptoms developed about 3-5 years ago. She did see an ENT at [facility] in 2019 and underwent nasal polypectomy. However, since the procedure, her nasal congestion has returned. The patient offers that she suffers from seasonal allergies year round, however, she is especially sensitive to ragweed. She takes OTC allergy medications. She has tried nasal sprays such as nasacourt and flonase in the past, but has not been able to tolerate the taste of them. She also reports facial pain, severe PND, itchy nose/eyes,loss of smell. She denies ear fullness. She also reports that around the same time that she developed these symptoms she also developed pulmonary symptoms, as well. She was diagnosed with adult onset asthma. She is currently on a Symbicort inhaler. She quit smoking a few months ago. She has been placed on prednisone tapers in the past for these symptoms. She reports great improvement in her sinus andnasal symptoms with the prednisone. There is no problem list on file for this patient. Past Medical History: Diagnosis Date ??? Asthma ??? Environmental allergies Past Surgical History: Procedure Laterality Date ??? NASAL POLYP SURGERY History reviewed. No pertinent family history. Social Social History Socioeconomic History ??? Marital status: Spouse name: Not on file ??? Number of children: Not on file ??? Years of education: Not on file ??? Highest education level: Not on file Occupational History ??? Not on file Tobacco Use ??? Smoking status: Former Smoker Packs/day: 1.00 Years: 30.00 Pack years: 30.00 Types: Cigarettes ??? Smokeless tobacco: Never Used Substance and Sexual Activity ??? Alcohol use: Yes Alcohol/week: 4.0 standard drinks Types: 4 Standard drinks or equivalent per week ??? Drug use: Not on file ??? Sexual activity: Not on file Other Topics Concern ??? Not on file Social History Narrative ??? Not on file Social Determinants of Health Financial Resource Strain: ??? Difficulty of Paying Living Expenses: Not on file Food Insecurity: ??? Worried About Running Out of Food in the Last Year: Not on file ??? Ran Out of Food in the Last Year: Not on file Transportation Needs: ??? Lack of Transportation (Medical): Not on file ??? Lack of Transportation (Non-Medical): Not on file Physical Activity: ??? Days of Exercise per Week: Not on file ??? Minutes of Exercise per Session: Not on file Stress: ??? Feeling of Stress : Not on file Social Connections: ??? Frequency of Communication with Friends and Family: Not on file ??? Frequency of Social Gatherings with Friends and Family: Not on file ??? Attends Tenriism Services: Not on file ??? Active Member of Clubs or Organizations: Not on file ??? Attends Club or Organization Meetings: Not on file ??? Marital Status: Not on file Outpatient Medications Marked as Taking for the 12/29/20 encounter (Office Visit) with Keren Swain MD Medication Sig Dispense Refill ??? budesonide/formoterol fumarate (SYMBICORT INHALATION) Inhale as directed. ??? montelukast (SINGULAIR) 10 mg tablet Take by mouth daily. Not on File ROS - Endorses nasal congestion, cough, heartburn, environmental allergy symptoms Denies fevers, chills, weight loss, extreme fatigue, rash, hearing loss, ear pain, sore throat, blurred vision, sensitivity to light, chest pain, palpitations, leg cramps with walking, ankle swelling, spitting up blood, SOB with walking, wheezing, muscle pain, joint pain, bruising, headaches, numbness, weakness of leg/arm/face SNOT-22 Score: 34 NOSE Score: 12 Objective: There were no vitals taken for this visit. Department of Otolaryngology PHYSICAL EXAMINATION CONSTITUTIONAL: APPEARANCE: The patient appears alert, cooperative, and comfortable. ABILITY TO COMMUNICATE / VOICE: Normal HEAD AND FACE: OTOSCOPY Normal bilateral tympanic membranes. EXTERNAL EAR & NOSE: No external ear or nose deformity noted NOSE & MOUTH: NOSE: see nasal endoscopy report LIPS, TEETH & GUMS: normal for age ORAL CAVITY & OROPHARYNX: normal LYMPHATIC: CERVICAL LYMPH NODES: No pathologic cervical lymphadenopathy noted Endoscopy Procedure Note Pre-procedure Diagnosis: Sinusitis Post-procedure Diagnosis: same Indications: Nasal/sinus symptoms requiring endoscopy - unable to visualize adequately by anterior or posterior rhinoscopy Anesthesia: Cophenylcaine Endoscopy Type: Nasal endoscopy using a 0 degree rigid telescope Procedure Details: With the patient sitting upright in the examining chair informed consent was obtained. The right andleft nostril was topically anesthetized with cotton pledgets. After waiting an appropriate period oftime for anesthesia/ vasoconstriction to become effective, the scope was passed into the both nostril s and the nasal cavities were examined. Condition: Patient tolerated procedure well and left the office in a stable condition. Complications: None Findings: Significant grade IV polyposis present in right nasal cavity completing obstructing visualization ofthe middle turbinate. Inferior turbinate visible. Grade III polyposis present in left nasal cavity. Nasal Endoscopy performed by Dr. Swain. 05/03/18 CT Sinus: aplastic frontal sinuses. Otherwise, pansinusitis demonstrated. Assessment: Aileen Murphy is a 50 year old female with a past history of adult onset asthma and seasonal allergies who presents with a 3-5 year history of persistent nasal congestion, and rhinorrhea. The development of these symptoms also coincided with the development of adult-onset asthma. On nasal endoscopy, patient was found to have significant nasal polyposis. Review of an OSH CT scan from February 2020 wassignificant for a lack of frontal sinuses and severe pansinusitis. Her clinical picture is more consistent with an esinophilic sinusitis/asthma. A formal pulmonology evaluation is recommended. Endoscopic sinus surgery is likely to be necessary given the degree of polyposis present. We discussed that the purpose of this surgery is to allow for better penetration of her sinuses with medicated nasal rinses for long-term anti- inflammatory treatment. The benefits and risks of sinus surgery were outlined. Risks mentioned include need for repeat procedures, lack of improvement of symptoms, loss of smell or taste, bleeding, infection, CSF leak (extremely rare), or eye trauma (extremely rare). Thepatient is interested in pursuing surgery. We will obtain a repeat CT Sinus scan for surgical planning. For symptom relief, we prescribed a 1 week prednisone steroid taper, and a budesonide/pulmicort/saline sinus rinse daily to be used on an ongoing basis. A CBC was ordered to evaluate her eosinophil levels. A follow up appointment will be coordinated once the CT scan is obtained. Plan: Aileen was seen today for sinusitis. Diagnoses and all orders for this visit: Chronic pansinusitis - CT SINUSES W CONTRAST; Future - AMB CONS/FOLLOW UP PULMONARY; Future - COMPLETE BLOOD COUNT AND DIFFERENTIAL; Future Other orders - montelukast (SINGULAIR) 10 mg tablet; Take by mouth daily. - budesonide/formoterol fumarate (SYMBICORT INHALATION); Inhale as directed. - budesonide (PULMICORT) 0.5 mg/2 mL nebulizer suspension; 2mL in sinus rinse kit once daily - predniSONE (DELTASONE) 20 mg tablet; 2 tabs once daily for 7 days - As above. Tamar Gunn MD Otolaryngology PGY-1 12/29/20 18:00 Attestation statement: I performed or was present during the red or critical portions of the visit and participated in the management of the patient. I agree with the findings and plan of care documented in the resident's/fellow's note. I was present for the entire nasal endoscopy procedure. Keren Swain MD Otolaryngology-[facility] documented in this encounter Plan of Treatment Upcoming Encounters Date Type Specialty Care Team Description 02/17/2022 Office Visit Otolaryngology Keren Swain MD 111 [facility], Level [address] [place], [place] [address] (Wo rk) Scheduled Orders Name Type Priority Associated Diagnoses Order S chedule CT SINUSES WO CONTRAST Imaging Routine Chronic pansinusit is Expected: 01/03/2021, Expires: 2022 Scheduled Referrals Name Type Priority Associated Order Schedule Diagnoses AMB CONS/FOLLOW Outpatient Routine/Next Chronic Expected: UP PULMONARY Referral Available pansinusitis 01/29/2021 (Approximate), Expires: 12/29/2021 documented as of this encounter Results (ABNORMAL) COMPLETE BLOOD COUNT AND DIFFERENTIAL (12/29/2020 17:32 EDT) WBC 10.20 4.00 - 12.40 [facility]ATORY SERVICES RBC 5.02 3.86 - 5.04 [facility] SERVICES Hemoglobin 14.8 11.6 - 15.2 [facility] gm/dL LABORATORY SERVICES HCT 44.3 34.9 - 44.4 % [facility] LABORATORY SERVICES MCV 88 81 - 98 fl [facility] SERVICES MCH 29.5 26.7 - 33.3 pg [facility] LABOR[facility]ORY SERVICES MCHC 33.4 32.1 - 35.9 [facility] gm/dL LABORATORY SERVICES RDW-CV 13.0 <14.7 % [facility] LABORATORY SERVICES RDW-SD 42.0 <50.4 fl [facility] LABORATORY SERVICES PLT 383 (H) 141 - 377 [facility] MPV 11.0 9.5 - 12.7 fl [facility] LABORATORY SERVICES Neutrophils 61.9 % [facility] SERVICES Lymphocytes 22.1 % [facility] SERVICES Monocytes 10.2 % [facility] SERVICES Eosinophils 4.5 % [facility] SERVICES Basophils 0.9 % [facility] SERVICES Immature Grans 0.4 % [facility] LABORATORY SERVICES Absolute Neutrophils 6.32 2.20 - 8.85 [facility] LABORATORY SERVICES Absolute Lymphocytes 2.25 1.09 - 3.30 [facility] LABORATORY SERVICES Absolute Monocytes 1.04 (H) 0.10 - 0.80 [facility] LABORATORY SERVICES Absolute Eosinophils 0.46 0.03 - 0.61 [facility] LABORATORY SERVICES Absolute Basophils 0.09 0.01 - 0.11 [facility] LABORATORY SERVICES Absolute Immature 0.04 0.00 - 0.06 [facility] LABORATORY SERVICES Type of Differential: Auto [facility] SERVICES Specimen Blood - Venous blood (substance) Performing Organization Address City/State/ZIP Code Phon e Number [facility] [address] [place] [address] SERVICES documented in this encounter Visit Diagnoses Diagnosis Chronic pansinusitis - Primary Other chronic sinusitis documented in this encounter Historical Medications This list may reflect changes made after this encounter. Medication Sig Dispensed Refills Start Date End Date budesonide/formoterol Inhale as directed. 0 fumarate (SYMBICORT INHALATION) montelukast (SINGULAIR) 10 Take by mouth daily. 0 mg tablet added in this encounter Care Teams Nail Galvanizer Relationship Specialty Start Date End Date Jonathan Elmore, LOGISTICS ACCOUNT MANAGER PCP - General 12/29/[address] [place] [address] [address] [place] [phone] documented as of this encounter
--- OUTSIDE RECORDS SUMMARY | 2021-12-09 01:58 | XMS_ITS | Encounter Summary ---
:1970 Author Organization [facility] Address [address] [place] [address] Care Team Providers Name Role Phone Jonathan Elmore APRN Primary Care Provider Reason for Visit Reason Onset Date Comments COVID-19 03/10/2021 Encounter Details Date Type Department Care Team Description 03/10/2021 Telephone [facility] - Keren Villa MD COVID-19 [employer] [id number] [place] [phone] (Wo rk) Social History Tobacco Use Types Packs/Day Years Used Date Former Smoker Cigarettes 1 Quit: 04/25/19 21 Smokeless Tobacco: Never Used Alcohol Use Standard Drinks/Week Comments Yes 7 (1 standard drink = 0.6 oz pure alcoho l) Sex Assigned at Date Recorded Not on file documented as of this encounter Miscellaneous Notes Telephone Encounter - Tara Mancini - 03/10/2021 1436 EST Called patient to schedule COVID-19 testing. Requested a call back @[phone]. This is our 1st attempt at contacting the patient. documented in this encounter Plan of Treatment Upcoming Encounters Date Type Specialty Care Team Description 02/17/2022 Office Visit Otolaryngology Keren Swain MD 111 [facility] 4 [place], [place] [address] (Wo rk) documented as of this encounter Visit Diagnoses Not on filedocumented in this encounter Care Teams Class A Regional Truck Driver Relationship Specialty Start Date End Date Jonathan Elmore APRN PCP - General 12/29/[address] [place] [address] [address] [place] [address] documented as of this encounter
--- OUTSIDE RECORDS SUMMARY | 2021-12-09 01:58 | XMS_ITS | Encounter Summary ---
:1970 Author Organization [facility] Address [address] [place] [address] Care Team Providers Name Role Phone Unknown, Provider Primary Care Provider Encounter Details Date Type Department Care Team Description 12/13/2020 Orders Only [facility] Ramon Nelson RN Encounter for ENT- [address] preprocedure screening [address] [place] [address] [place] [address] COVID-19 (Primary Dx) [phone] Social History Tobacco Use Types Packs/Day Years Used Date Never Assessed Sex Assigned at Date Recorded Not on file documented as of this encounter Plan of Treatment Upcoming Encounters Date Type Specialty Care Team Description 02/17/2022 Office Visit Otolaryngology Keren Swain MD 111 [facility], Level 4 [place], [place] [phone] (Wo rk) documented as of this encounter Visit Diagnoses Diagnosis Encounter for preprocedure screening lab oratory testing for COVID-19 - Primary documented in this encounter Care Teams Photoengraving Printer Relationship Specialty Start Date End Date Unknown, Provider, PCP - General 06/25/18 12/28/20 documented as of this encounter
--- OUTSIDE RECORDS SUMMARY | 2021-12-09 01:58 | XMS_ITS | Encounter Summary ---
:1970 Author Organization [facility] Address [address] [place] [address] Care Team Providers Name Role Phone Jonathan Elmore APRN Primary Care Provider Encounter Details Date Type Department Care Team Description 01/18/2021 Orders Only [facility] Ramon Nelson, RN Encounter for ENT- [address] preprocedure screening [address] [place] [address] [place] [address] COVID-19 (Primary Dx) [phone] Social History Tobacco Use Types Packs/Day Years [...] Office Visit Otolaryngology Keren Swain MD 111 [facility], Level 4 [place], [place] [address] (Wo rk) documented as of this encounter Visit Diagnoses Diagnosis Encounter for preprocedure screening lab oratory testing for COVID-19 - Primary documented in this encounter Care Teams Weighmaster Lead Relationship Specialty Start Date End Date Jonathan Elmore APRN PCP - General 12/29/[address] [place] [address] [address] [place] [address] documented as of this encounter
--- OUTSIDE RECORDS SUMMARY | 2021-12-09 01:58 | XMS_ITS | Encounter Summary ---
:[address] [facility] Address [address] [place] [address] Care Team Providers Name Role Phone Jonathan Elmore APRN Primary Care Provider Reason for Visit (Routine/Next Available) - Receiving Office to Obtain Authorization Specialty Diagnoses / Procedures Referred By Contact Refer red To Contact Procedures Unknown, Provider, CT OUTSIDE IMAGES NEURO Phone: Referral ID Status Reason Start Expiration Visits Visits Date Date Requested Authorized [id number] Receiving Office 1 1 to Obtain 1 Authorization Encounter Details Date Type Department Care Team Description 01/19/2021 Hospital Encounter [facility] Secondary Reads [place] Social History Tobacco Use Types Packs/Day Years Used Date Former Smoker Cigarettes 1 30 Smokeless Tobacco: Never Used Alcohol Use Standard Drinks/Week Comments Yes 4 (1 standard drink = 0.6 oz pure alcoho l) Sex Assigned at Date Recorded Not on file documented as of this encounter Medications at Time of Discharge Medication Sig Dispensed Refills Start Date End Date budesonide/formoterol Inhale as directed. 0 fumarate (SYMBICORT INHALATION) montelukast (SINGULAIR) Take by mouth daily. 0 10 mg tablet budesonide (PULMICORT) 2mL in sinus rinse 180 mL 3 12/3009/26/2021 0.5 mg/2 mL nebulizer kit once daily suspension predniSONE (DELTASONE) 20 2 tabs once daily 14 Tablet 0 03/10/2021 mg tablet for 7 days documented as of this encounter Discharge Disposition Disposition Code Departure Means Destination Home or Self Care documented in this encounter Plan of Treatment Upcoming Encounters Date Type Specialty Care Team Description 02/17/2022 Office Visit Otolaryngology Keren Swain MD 111 [facility], [facility], Level [address] [place], [place] [address] (Wo rk) documented as of this encounter Procedures Procedure Name Priority Date/Time Associated Diagnosis Comme nts CT OUTSIDE IMAGES Routine 01/24/2021 16:04 Result s for this NEURO EST procedure are i n the results section. documented in this encounter Results CT OUTSIDE IMAGES NEURO (01/24/2021 16:04 EST) Specimen Narrative 01/24/2021 16:04 EST This is a non-reportable exam. documented in this encounter Visit Diagnoses Not on filedocumented in this encounter Care Teams Back Filler Operator Relationship Specialty Start Date End Date Jonathan Elmore APRN PCP - General 12/29/[address] [place] [address] [address] [place] [address] documented as of this encounter
--- OUTSIDE RECORDS SUMMARY | 2021-12-09 01:58 | XMS_ITS | Encounter Summary ---
:1970 Author Organization [facility] Address [address] [place] [address] Care Team Providers Name Role Phone Jonathan Elmore APRN Primary Care Provider Encounter Details Date Type Department Care Team Description 03/11/2021 Lab Requisition [facility] Outr Resulting Lab, Pathology & Laboratory Provider [facility] [address] [place], [place] [address] Social History Tobacco Use Types Packs/Day Years [...] 111 [facility], Level 4 [place], [place] [phone] (Wo rk) documented as of this encounter Procedures Procedure Name Priority Date/Time Associated Diagnosis Comme nts COVID-19 TEST [facility] Today 03/11/2021 16:48 LAB PCR EST COVID-19 TESTING Routine 03/11/2021 16:48 Results for this EST procedure are i n the results section. documented in this encounter Results COVID-19 TEST [facility] LAB PCR (03/11/2021 16:48 EST) Specimen Swab Performing Organization Address City/State/ZIP Code Phon e Number [facility] [address] [place] [address] SERVICES COVID-19 TESTING (03/11/2021 16:48 EST) COVID-19 rt-PCR Negative Negative [facility] MEDICAL Result Comment: CENTER LABORATORY [...] tions, patient history, and epidemiological informatio n. This test was developed and its performance characteristics determined by [facility]. It has not been cleared or approved by the US Food and Drug Administration. FDA does not require this test to go through premarket FDA review. This t est is used for clinical purposes. It should not be regarded as investigational or for research. This laboratory is certified under the Clinical Laboratory Improvement Amendm ents (CLIA) as qualified to perform high complexity clinical laboratory testing. This test is based on the CD C COVID-19 Emergency Use Authorization (EUA) assay, with minor modification as defined by the FDA Performed on the iCoucho 7 Flex RT-PCR System. Performing Lab [facility] Lab [facility] SERVICES Specimen Swab Performing Organization Address City/State/ZIP Code Phon e Number [facility] [address] [place] [address] SERVICES documented in this encounter Visit Diagnoses Not on filedocumented in this encounter Care Teams Electric Meter Technician Relationship Specialty Start Date End Date Jonathan Elmore APRN PCP - General 12/29/[address] [place] [address] [address] [place] [address] documented as of this encounter
--- OUTSIDE RECORDS SUMMARY | 2021-12-09 01:58 | XMS_ITS | Encounter Summary ---
:1970 Author Organization [facility] Address [address] [place] [address] Care Team Providers Name Role Phone Jonathan Elmore APRN Primary Care Provider Reason for Visit Reason Onset Date Comments Discuss Surgery 03/14/2021 Encounter Details Date Type Department Care Team Description 03/14/2021 Telephone [facility] ENT- Keren Swain MD Discuss Surgery [address] [address] [address], [place] [address] (Wo rk) Social History Tobacco Use Types Packs/Day Years Used Date Former Smoker Cigarettes 04 03 Quit: 04/25/19 21 Smokeless Tobacco: Never Used Alcohol Use Standard Drinks/Week Comments Yes 7 (1 standard drink = 0.6 oz pure alcoho l) Sex Assigned at Date Recorded Not on file documented as of this encounter Miscellaneous Notes Telephone Encounter - Marce Prater - 03/14/2021 1334 EST Called patient to discuss surgery on 03/15/2021. Advised patient to arrive no later than 8:30 AM as surgery is set to begin around 10:30 AM. Advised no food after midnight however clear, fat-free beverages were acceptable until 4 hours priorto the surgical start time. Consent Obtained on DAY OF SURGERY. Received H&P from Jonathan Elmore NP on 02/17/2021. COVID-19 Vaccinated? Yes COVID-19 Tested? Yes at [facility] on 03/11/2021. Faxed necessary documentation to Pre-Op on 03/09/2021. Patient understands the information provided regarding surgery and has had the opportunity to ask additional questions about this information. Additional questions have been answered to the patient's satisfaction. documented in this encounter Plan of Treatment Upcoming Encounters Date Type Specialty Care Team Description 02/17/2022 Office Visit Otolaryngology Keren Swain MD 111 [facility], Level [address] [place], [place] [phone] (Wo rk) documented as of this encounter Visit Diagnoses Not on filedocumented in this encounter Care Teams Cnc Machine Setter Relationship Specialty Start Date End Date Jonathan Elmore APRN PCP - General 12/29/[address] [place] [address] [address] [place] [address] documented as of this encounter
--- OUTSIDE RECORDS SUMMARY | 2021-12-09 01:58 | XMS_ITS | Encounter Summary ---
:1970 Author Organization [facility] Address [address] [place] [address] Care Team Providers Name Role Phone Brock Alexander MD Primary Care Provider Encounter Details Date Type Department Care Team Description 09/12/2006 Results Only [facility] - Ger Aguiar MD conversion [address] [place], [place] [address] Social History Tobacco Use Types Packs/Day Years Used Date Never Assessed Sex Assigned at Date Recorded Not on file documented as of this encounter Plan of Treatment Upcoming Encounters Date Type Specialty Care Team Description 02/17/2022 Office Visit Otolaryngology Keren Swain MD 111 [facility], Level [address] [place], [place] [phone] (Wo rk) documented as of this encounter Procedures Procedure Name Priority Date/Time Associated Diagnosis Comme nts CYTOPATHOLOGY Routine 09/12/2006 0:00 EDT Results for this procedure are i n the results section . documented in this encounter Results CYTOPATHOLOGY (09/12/2006 0:00 EDT) Pathology Report: CYTOPATHOLOGY REPORT [facility] Reports generated via electronic interface contain marily ginal data; however they are lacking the format of the original re port. Caution should be taken when reading/interpreting unfo rmatted reports. Name: ? AILEEN MURPHY ? Accession #: ? [id number] : ? 1970 (Age: 36) ??F ?Collect Date: ? 09/02 Location: ? [facility] ? Receive Date : ? 09/12/2006 Provider: ? GER PETTIT MD Copy to: ? CYTOLOGIC DIAGNOSIS: ? Breast, right, fine needle aspiration: - Abundant foam cells and rare apocrine cells, consist ent with fibrocystic change. ?? Document reviewed and electronically signed by: ? Marcos Bach MD Report Date: ??09/12/2006 16:50 By the signature above, the attending physician certif ies that he/she has personally conducted a gross and/or microscopic examin ation of the described specimens and rendered or confirmed the above diagnosi s. Specimen Type: ? Breast, Fine Needle Aspiration, Right Clinical History: ? Not listed ? Gross Description: ? 1 tube of Cytolyt was received and processed by selective cellular enhancement technique. ? End of Report Specimen Performing Organization Address City/State/ZIP Code Phon e Number [facility] [address] [place] [address] SERVICES [facility] [address] [place] [address] documented in this encounter Visit Diagnoses Not on filedocumented in this encounter Care Teams Box Truck Owner Operator Relationship Specialty Start Date End Date Brock Alexander MD PCP - General 01/22/09 06/24/[address] [place] [address] [place] [address] documented as of this encounter
--- OUTSIDE RECORDS SUMMARY | 2021-12-09 01:58 | XMS_ITS | Encounter Summary ---
:1970 Author Organization [facility] Address [address] [place] [address] Care Team Providers Name Role Phone Jonathan Elmore APRN Primary Care Provider Reason for Visit Reason Comments Follow-up Sinus Problems Encounter Details Date Type Department Care Team Description 01/26/2021 Office Visit [facility] Keren Swain [facility] er chronic ENT- [facility] MD sinusitis (Primary [address] [place] [place] [address] Avenue [phone] [facility], [address] [place] [address] (Wo rk) Social History Tobacco Use Types Packs/Day Years Used Date Former Smoker Cigarettes 1 30 Smokeless Tobacco: Never Used Alcohol Use Standard Drinks/Week Comments Yes 4 (1 standard drink = 0.6 oz pure alcoho l) Sex Assigned at Date Recorded Not on file documented as of this encounter Progress Notes Keren Swain MD - 01/26/2021 8157 EST Progress Note Division of Otolaryngology, Head and Neck Surgery Date of Service: 01/26/21 Provider: Keren Swain MD Chief Complaint: Chief Complaint Patient presents with ??? Follow-up ??? Sinus Problems History of Present Illness: Aileen Murphy is a 51 y.o. female who comes in today in follow up of chronic sinusitis with polyps. She returns today to discuss surgery in more detail following CT Sinus. Past medical/surgical/family/social history was reviewed and unchanged other than: none Allergies: No Known Allergies Review of Systems: A 12 point review of systems was performed, and was negative, except for none. Physical Exam: Vital Signs: Reviewed (3) There were no vitals taken for this visit. Appearance: The patient appears alert, cooperative, and comfortable. Communication/Voice: Normal Head and Face: Inspection: Normal without apparent scars, lesions, or masses. Palpation: Not performed. Salivary Glands: Submandibular and Parotid glands are normal bilaterally Facial Strength: Intact and symmetrical bilaterally External Ear & Nose: No external ear or nose deformity noted Ears, Nose, Mouth and Throat: Otoscopy: Right external auditory canal: not examined Left external auditory canal: not examined Right tympanic membrane: not examined Left tympanic membrane: not examined Nose: normal turbinates and mucosa: septum in midline. Grade 4 polyps visualized on the left Lips, Teeth & Gums: normal for age Oral Cavity & Oropharynx: normal Neck: General: Not examined Thyroid: Not examined Cervical Lymph Nodes: Not Examined Investigations: 01/26/21 SNOT-22: 56 01/19/21 CT scan: bilateral pansinus opacification with aplastic frontal sinuses Assessment: 1. CRS with polyps - we discussed surgery in detail and she wishes to proceed. She understands the need for continued postoperative treatment with daily steroid rinses. Consent was obtained and we willproceed with surgery. 2. Asthma - pending pulmonology consultation Plan: - Consent was reviewed from a technical standpoint, demonstrating with CT sinus scans and sinus headmodel. Limitations were discussed including incomplete improvement per subjective expectation. Potential risks and complications including, but not exclusive to infection, hemorrhage, septal perforation, blindness, double vision, CSF leak, meningitis, brain abscess, permanent loss of smell and taste. - Continue budesonide rinses daily - Pulmonology consultation on a nonurgent basis to initiate care and ongoing treatment Keren Swain MD 01/26/21 documented in this encounter Plan of Treatment Upcoming Encounters Date Type Specialty Care Team Description 02/17/2022 Office Visit Otolaryngology Keren Swain MD 111 [facility], [address] [place], [place] [phone] (Wo rk) documented as of this encounter Visit Diagnoses Diagnosis Other chronic sinusitis - Primary documented in this encounter Orders Case Request Count Last Ordered Date First Ordered Date CASE REQUEST OPERATING ROOM 1 01/26/2021 documented in this encounter Care Teams Full Stack Php Developer Relationship Specialty Start Date End Date Jonathan Elmore APRN PCP - General 12/29/[address] [place] [address] [address] [place] [address] documented as of this encounter
--- OUTSIDE RECORDS SUMMARY | 2021-12-09 01:58 | XMS_ITS | Encounter Summary ---
:1970 Author Organization [facility] Address [address] [place] [address] Care Team Providers Name Role Phone Brock Alexander MD Primary Care Provider Encounter Details Date Type Department Care Team Description 03/04/2009 Orders Only [facility] Laboratory Srinivas Pettit am, MD Services - [facility] [place] [address] [place], [place] [phone] Social History Tobacco Use Types Packs/Day Years Used Date Never Assessed Sex Assigned at Date Recorded Not on file documented as of this encounter Plan of Treatment Upcoming Encounters Date Type Specialty Care Team Description 02/17/2022 Office Visit Otolaryngology Keren Swain MD 111 [facility], [address] [place], [place] [phone] (Wo rk) documented as of this encounter Procedures Procedure Name Priority Date/Time Associated Comments Diagnosis HPV DETECTION, HIGH Routine 03/04/2009 10:17 Resu lts for this RISK TYPES EST procedure are i n the results section. CYTOPATHOLOGY Routine 03/04/2009 0:00 Results for this EST procedure are i n the results section. documented in this encounter Results HUMAN PAPILLOMA VIRUS DNA TEST (03/04/2009 10:17 EST) Specimen Description Cervix, ThinPrep [facility] vial Result Negative for HPV [facility] types 16, 18, 31, 33, 35, 39, 45, 51, 52, 56, 58, 59, and 68. Report Status Final [facility] 03/17/2009 Specimen Performing Organization Address City/State/ZIP Code Phon e Number [facility] [address] [place] [address] SERVICES [facility] [address] [place] [address] CYTOPATHOLOGY (03/04/2009 0:00 EST) Pathology Report: CYTOPATHOLOGY REPORT ? [facility] ? LAB Reports generated via electr SweetPerkic interface contain original data; ? however they are lacking the format of the original report. ? Caution should be taken when reading/interpreting unformatted reports. ? Name: ? AILEEN MURPHY ? Accession #: ? [id number] ? : ? 1970 (Age: 39) ??F ?Collect Date: ? 03/04/2009 ? Location: ? [facility] ? Receive Date: ? 03/08/2009 ? Provider: ?YANDY B PETTIT MD ? Copy to: ? Specimen/Source: ? Pap Test, Cervix/Endocervix, ThinPrep Imaging System ? with manual evaluation ? Last Menstrual Period: ? Previous Gynecologic Patholo gy: ? GALDINO: Mod 1991 ? Treatment History: ? Cryotherapy ? Other: ? Additional clinical informat ion: Paps WNL since ? HPVDX - HPV testing requeste d regardless of diagnosis on current ThinPrep Pap ?? test. ? SPECIMEN ADEQUACY ? Satisfactory for Eval uation ? - transformation zone compon ent absent ? GENERAL CATEGORIZATION ? Negative for Intraepi thelial Lesion or Malignancy ? Document reviewed and electr onically signed by: ? Mitzi De Leon, CT(ASCP) ? Report Date: ??01/06/ 2010 08:35 ? End of Report ? Specimen Performing Organization Address City/State/[facility] Code Phon e Number [facility] [address] [place] [address] SERVICES [facility] [address] [place] [address] documented in this encounter Visit Diagnoses Not on filedocumented in this encounter Care Teams Childbirth Educator Relationship Specialty Start Date End Date Brock Alexander MD PCP - General 01/22/09 06/24/[address] [place] [address] [place] [address] documented as of this encounter
--- OUTSIDE RECORDS SUMMARY | 2021-12-09 01:58 | XMS_ITS | Encounter Summary ---
:1970 Author Organization [facility] Address [address] [place] [address] Care Team Providers Name Role Phone Brock Alexander MD Primary Care Provider Encounter Details Date Type Department Care Team Description 09/24/2000 Results Only [facility] - Ger Aguiar MD conversion [address] [place], [place] [address] Social History Tobacco Use Types Packs/Day Years Used Date Never Assessed Sex Assigned at Date Recorded Not on file documented as of this encounter Plan of Treatment Upcoming Encounters Date Type Specialty Care Team Description 02/17/2022 Office Visit Otolaryngology Keren Swain MD 111 [facility], Level [address] [place], [place] [phone] (Wo rk) documented as of this encounter Procedures Procedure Name Priority Date/Time Associated Diagnosis Comme nts CYTOPATHOLOGY Routine 09/24/2000 0:00 EDT Results for this procedure are i n the results section . documented in this encounter Results CYTOPATHOLOGY (09/24/2000 0:00 EDT) Pathology Report: CYTOPATHOLOGY REPORT [facility] Reports generated via electronic interface contain marily ginal data; however they are lacking the format of the original re port. Caution should be taken when reading/interpreting unfo rmatted reports. Name: ? AILEEN MURPHY ? Accession #: ? [id number] : ? 1970 (Age: 30) ??F ?Collect Date: ? 09/03 Location: ? [facility] ? Receive Date : ? 09/26/2000 Provider: ?GER PETTIT MD Copy to: ? Specimen/Source: ?ThinPrep Pap Test, Cervix/ Endocervix Last Menstrual Period: ? 09/16/00 Treatment History: ? Cryotherapy: 1990, paps nl since ? SPECIMEN ADEQUACY ? Satisfactory for eval uation but limited by an absence of a transformation zone component. GENERAL CATEGORIZATION ? Within Normal Limits ? Document reviewed and electronically signed by: ? FATOU Dow(ASCP) ? Report Date: ??10/02/2000 10:14 End of Report Specimen Performing Organization Address City/State/ZIP Code Phon e Number [facility] [address] [place] [address] SERVICES [facility] [address] [place] [address] documented in this encounter Visit Diagnoses Not on filedocumented in this encounter Care Teams Binitrotoluene Operator Relationship Specialty Start Date End Date Brock Alexander MD PCP - General 01/22/09 06/24/18 [address] [facility] [place] [address] documented as of this encounter
--- OUTSIDE RECORDS SUMMARY | 2021-12-09 01:58 | XMS_ITS | Encounter Summary ---
:1970 Author Organization [facility] Address [address] [place] [address] Care Team Providers Name Role Phone Brock Alexander MD Primary Care Provider Encounter Details Date Type Department Care Team Description 12/11/2001 Results Only [facility] - Ger Aguiar MD conversion [address] [place], [place] [address] Social History Tobacco Use Types Packs/Day Years Used Date Never Assessed Sex Assigned at Date Recorded Not on file documented as of this encounter Plan of Treatment Upcoming Encounters Date Type Specialty Care Team Description 02/17/2022 Office Visit Otolaryngology Keren Swain MD [address] [facility], [address] [place], [place] [address] (Wo rk) documented as of this encounter Procedures Procedure Name Priority Date/Time Associated Diagnosis Comme nts CYTOPATHOLOGY Routine 12/11/2001 0:00 EDT Results for this procedure are i n the results section . documented in this encounter Results CYTOPATHOLOGY (12/11/2001 0:00 EDT) Pathology Report: CYTOPATHOLOGY REPORT [facility] Reports generated via electronic interface contain marily ginal data; however they are lacking the format of the original re port. Caution should be taken when reading/interpreting unfo rmatted reports. Name: ? AILEEN MURPHY ? Accession #: ? [id number] : ? 1970 (Age: 31) ??F ?Collect Date: ? 10/0 11/2001 Location: ? [facility] ? Receive Date : ? 12/13/2001 Provider: ?GER PETTIT MD Copy to: ? Specimen/Source: ?ThinPrep Pap Test, Cervix/ Endocervix Last Menstrual Period: ? 11/14/01 Hormonal/Contraceptive Status: ? Yes Other: ? HPVA - HPV testing requested if ASC-US on the current ThinPrep Pap test. ? SPECIMEN ADEQUACY ? Satisfactory for Evaluation - transformation zone component present GENERAL CATEGORIZATION ? Negative for Intraepithelial Lesion or Malignan cy ? Document reviewed and electronically signed by: ? FATOU Barrow(ASCP) ? Report Date: ??12/18/2001 12:50 End of Report Specimen Performing Organization Address City/State/ZIP Code Phon e Number [facility] [address] [place] [address] SERVICES [facility] [address] [place] [address] documented in this encounter Visit Diagnoses Not on filedocumented in this encounter Care Teams It Program Engagement Director Relationship Specialty Start Date End Date Brock Alexander MD PCP - General 01/22/09 06/24/18 [address] [facility] [address] [place], [place] [id number] documented as of this encounter
--- OUTSIDE RECORDS SUMMARY | 2021-12-09 01:58 | XMS_ITS | Encounter Summary ---
:1970 Author Organization [facility] Address [address] [place] [address] Care Team Providers Name Role Phone Jonathan Elmore APRN Primary Care Provider Encounter Details Date Type Department Care Team Description 02/28/2021 Orders Only [facility] Ramon Nelson, RN Encounter for ENT- [facility] [address] [facility] preoperative screening [address] [place] [address] [place] [address] COVID-19 virus [phone] (Primary Dx) Social History Tobacco Use Types Packs/Day Years [...] Office Visit Otolaryngology Keren Swain MD [address] [facility], [address] [place], [place] [address] (Wo rk) documented as of this encounter Visit Diagnoses Diagnosis Encounter for preoperative screening lab oratory testing for COVID-19 virus - Primary documented in this encounter Care Teams Pest Control Technician Relationship Specialty Start Date End Date Jonathan Elmore APRN PCP - General 12/29/20 [facility] [address] [place] [address] documented as of this encounter
--- OUTSIDE RECORDS SUMMARY | 2021-12-09 01:58 | XMS_ITS | Encounter Summary ---
:1970 Author Organization [facility] Address [address] [place] [address] Care Team Providers Name Role Phone Jonathan Elmore APRN Primary Care Provider Reason for Visit Reason Onset Date Comments Nasal Congestion 01/24/2021 Encounter Details Date Type Department Care Team Description 01/24/2021 Telephone [facility] E[facility]- Keren Swain MD Nasal Congestion [address] [address] [address], [place] [phone] (Wo rk) Social History Tobacco Use Types Packs/Day Years Used Date Former Smoker Cigarettes 1 30 Smokeless Tobacco: Never Used Alcohol Use Standard Drinks/Week Comments Yes 4 (1 standard drink = 0.6 oz pure alcoho l) Sex Assigned at Date Recorded Not on file documented as of this encounter Miscellaneous Notes Telephone Encounter - Marce Prater - 01/24/2021 1537 EST LMOM for patient advising that she should wait for her appointment to be evaluated to see what's really going on. Advised to call back with any questions. Telephone Encounter - Marce Prater - 01/24/2021 1505 EST Patient is wondering if she can get started on medication prior to her upcoming appointment on Sunday or if she should just wait. Will be bringing C19 results with her to appointment. Symptoms: Cough Nasal Congestion documented in this encounter Plan of Treatment Upcoming Encounters Date Type Specialty Care Team Description 02/17/2022 Office Visit Otolaryngology Keren Swain MD [address] [facility], [address] [place], [place] [phone] (Wo rk) documented as of this encounter Visit Diagnoses Not on filedocumented in this encounter Care Teams Leather Production Machine Operator Relationship Specialty Start Date End Date Jonathan Elmore APRN PCP - General 12/29/[address] [place] [address] [address] [place] [address] documented as of this encounter
--- OUTSIDE RECORDS SUMMARY | 2021-12-09 01:58 | XMS_ITS | Encounter Summary ---
:1970 Author Organization [facility] Address [address] [place] [address] Care Team Providers Name Role Phone Brock Alexander MD Primary Care Provider Encounter Details Date Type Department Care Team Description 09/11/2006 Results Only [facility] - Ger Aguiar MD conversion [address] [place], [place] [address] Social History Tobacco Use Types Packs/Day Years Used Date Never Assessed Sex Assigned at Date Recorded Not on file documented as of this encounter Plan of Treatment Upcoming Encounters Date Type Specialty Care Team Description 02/17/2022 Office Visit Otolaryngology Keren Swain MD [address] [facility], [address] [place], [place] [address] (Wo rk) documented as of this encounter Procedures Procedure Name Priority Date/Time Associated Diagnosis Comme nts CYTOPATHOLOGY Routine 09/11/2006 0:00 EDT Results for this procedure are i n the results section . documented in this encounter Results CYTOPATHOLOGY (09/11/2006 0:00 EDT) Pathology Report: CYTOPATHOLOGY REPORT [facility] Reports generated via electronic interface contain marily ginal data; however they are lacking the format of the original re port. Caution should be taken when reading/interpreting unfo rmatted reports. Name: ? AILEEN MURPHY ? Accession #: ? [id number] : ? 1970 (Age: 36) ??F ?Collect Date: ? 09/02 Location: ? [facility] ? Receive Date : ? 09/12/2006 Provider: ? GER PETTIT MD Copy to: ? CYTOLOGIC DIAGNOSIS: ? Breast, left, fine needle aspiration: 1. ?Abundant foam cells. ?? See comment. 2. ? No epithelial cells identified. ? COMMENT: ? The findings are suggestive of fi brocystic change. ??(Dr. Caballero)/[facility] Document reviewed and electronically signed by: ? TANO CABALLERO MD Report Date: ??09/12/2006 16:50 By the signature above, the attending physician certif ies that he/she has personally conducted a gross and/or microscopic examin ation of the described specimens and rendered or confirmed the above diagnosi s. Specimen Type: ? Breast, Fine Needle Aspiration, Left Clinical History: ? Not listed ? Gross Description: ? 1 tube of Cytolyt was received and processed by selective cellular enhancement technique. ? End of Report Specimen Performing Organization Address City/State/ZIP Code Phon e Number [facility] [address] [place] [address] SERVICES [facility] [address] [place] [address] documented in this encounter Visit Diagnoses Not on filedocumented in this encounter Care Teams Board Certified Family Physician Relationship Specialty Start Date End Date Brock Alexander MD PCP - General 01/22/09 06/24/[address] [place] [address] [place] [address] documented as of this encounter
--- OUTSIDE RECORDS SUMMARY | 2021-12-09 01:58 | XMS_ITS | Encounter Summary ---
:1970 Author Organization [facility] Address [address] [place] [address] Care Team Providers Name Role Phone Brock Alexander MD Primary Care Provider Encounter Details Date Type Department Care Team Description 12/15/2002 Results Only [facility] - Ger Aguiar MD conversion [address] [place], [place] [phone] Social History Tobacco Use Types Packs/Day Years Used Date Never Assessed Sex Assigned at Date Recorded Not on file documented as of this encounter Plan of Treatment Upcoming Encounters Date Type Specialty Care Team Description 02/17/2022 Office Visit Otolaryngology Keren Swain MD 111 [facility], [address] [place], [place] [phone] (Wo rk) documented as of this encounter Procedures Procedure Name Priority Date/Time Associated Diagnosis Comme nts CYTOPATHOLOGY Routine 12/15/2002 0:00 EDT Results for this procedure are i n the results section . documented in this encounter Results CYTOPATHOLOGY (12/15/2002 0:00 EDT) Pathology Report: CYTOPATHOLOGY REPORT [facility] Reports generated via electronic interface contain marily ginal data; however they are lacking the format of the original re port. Caution should be taken when reading/interpreting unfo rmatted reports. Name: ? AILEEN MURPHY ? Accession #: ? [id number] : ? 1970 (Age: 32) ??F ?Collect Date: ? 12/03 Location: ? [facility] ? Receive Date : ? 12/17/2002 Provider: ?GER PETTIT MD Copy to: ? Specimen/Source: ?ThinPrep Pap Test, Cervix/ Endocervix Last Menstrual Period: ? 11/29/02 Hormonal/Contraceptive Status: ? Yes Previous Gynecologic Pathology: ? GALDINO: paps until ASC-US: favor reactive. ??Paps since WN Treatment History: ? Cryotherapy: 1990 Other: ? HPVA - HPV testing requested if ASC-US on the current ThinPrep Pap test. ? SPECIMEN ADEQUACY ? Satisfactory for Evaluation - transformation zone component absent GENERAL CATEGORIZATION ? Negative for Intraepithelial Lesion or Malignan cy ? Document reviewed and electronically signed by: ? FATOU Prabhakar(ASCP) ? Report Date: ??12/22/2002 13:14 End of Report Specimen Performing Organization Address City/State/ZIP Code Phon e Number [facility] [address] [place] [address] SERVICES [facility] [address] [place] [address] documented in this encounter Visit Diagnoses Not on filedocumented in this encounter Care Teams Middleware Administrator Relationship Specialty Start Date End Date Brock Alexander MD PCP - General 01/22/09 06/24/[address] [place] [address] [place] [address] documented as of this encounter
--- OUTSIDE RECORDS SUMMARY | 2021-12-09 01:58 | XMS_ITS | Encounter Summary ---
:1970 Author Organization [facility] Address [address] [place] [address] Care Team Providers Name Role Phone Unknown, Provider Primary Care Provider Encounter Details Date Type Department Care Team Description 11/19/2018 Results Only [facility]- Jacqueline Zheng [phone] MD Margar[address] [place], [place] [address] (Wo rk) Social History Tobacco Use Types Packs/Day Years Used Date Never Assessed Sex Assigned at Date Recorded Not on file documented as of this encounter Plan of Treatment Upcoming Encounters Date Type Specialty Care Team Description 02/17/2022 Office Visit Otolaryngology Keren Swain MD 111 [facility], [address] [place], [place] [address] (Wo rk) documented as of this encounter Procedures Procedure Name Priority Date/Time Associated Diagnosis Comme nts PAP TEST- RESULT Routine 11/19/2018 0:00 EDT Resu lts for this ONLY procedure are i n the results section. documented in this encounter Results PAP TEST- RESULT ONLY (11/19/2018 0:00 EDT) Pathology Report: CYTOPATHOLOGY REPORT [facility] Reports generated via electronic interface contain marily ginal data; SERVICES however they are lacking the format of the original re port. Caution should be taken when reading/interpreting unfo rmatted reports. Name: ? AILEEN MURPHY ? Accession #: ? [id number] ? : ? 1970 (Age: [age]) ??F ?Collect Date: ? 11/19/2018 ? Location: ? [facility] ? Receive Date: ? 11/22/19 19 ? Provider: JACQUELINE HUANG MD Copy to: ? Final Report SPECIMEN ADEQUACY ? Satisfactory for Evaluation - transformation zone component present GENERAL CATEGORIZATION ? Negative for Intraepithelial Lesion or Malignan cy ?? Hormonal/Contraceptive status: Intrauterine device Other: Additional clinical information: Z11.51 Z01.419 Previous NIL Pap(s): 05/04/14 Specimen/Source: ??Pap Test, Cervix/Endocervix, ThinPr ep Imaging System with manual evaluation Document reviewed and electronically signed by: ? FATOU Merrill(ASCP) ? Report ??Date: 11/22/2018 12:31 HPV with Pap Test ? Date Ordered: ? 11/22/2018 ? Status: ?? Signed Out ?Date Complete: ? 11/25/2018 ? By: ??Sy stem Interface ? Date Reported: ? 11/25/2018 ? Interpretation RESULT: Negative for HPV. No E6 or E7 mRNA is detected from HPV types 16,18,31,3 3,35, 39,45,51,52,56,58,59,66, and 68 by pearler media ronel amplification. Comments Document reviewed and electronically signed by: ? System Interface ? Report date: 11/25/2018 By the signature above, the attending physician certif ies that he/she has personally conducted a gross and/or microscopic examin ation of the described specimens and rendered or confirmed the above diagnosi s. End of Report Specimen Performing Organization Address City/State/ZIP Code Phon e Number [facility] [address] [place] [address] SERVICES documented in this encounter Visit Diagnoses Not on filedocumented in this encounter Care Teams Video Clerk Relationship Specialty Start Date End Date Unknown, Provider, PCP - General 06/25/18 12/28/20 documented as of this encounter
--- OUTSIDE RECORDS SUMMARY | 2021-12-09 01:58 | XMS_ITS | Encounter Summary ---
:1970 Author Organization [facility] Address [address] [place] [address] Care Team Providers Name Role Phone Brock Alexander MD Primary Care Provider Encounter Details Date Type Department Care Team Description 02/13/2006 Results Only [facility] - Ger Aguiar MD conversion [address] [place] [id number] Social History Tobacco Use Types Packs/Day Years Used Date Never Assessed Sex Assigned at Date Recorded Not on file documented as of this encounter Plan of Treatment Upcoming Encounters Date Type Specialty Care Team Description 02/17/2022 Office Visit Otolaryngology Keren Swain MD 111 [facility], [address] [place], [place] [phone] (Wo rk) documented as of this encounter Procedures Procedure Name Priority Date/Time Associated Comments Diagnosis HPV DETECTION, HIGH Routine 02/13/2006 8:59 Resul ts for this RISK TYPES EST procedure are i n the results section. CYTOPATHOLOGY Routine 02/13/2006 0:00 Results for this EST procedure are i n the results section. documented in this encounter Results HUMAN PAPILLOMA VIRUS DNA TEST (02/13/2006 8:59 EST) Specimen Description Cervix, ThinPrep [facility] vial Result Negative for HPV [facility] types 16, 18, 31, 33, 35, 39, 45, 51, 52, 56, 58, 59, and 68. Report Status Final [facility] [id number] Specimen Performing Organization Address City/State/ZIP Code Phon e Number [facility] [address] [place] [address] SERVICES [facility] [address] [place] [address] CYTOPATHOLOGY (02/13/2006 0:00 EST) Pathology Report: CYTOPATHOLOGY REPORT [facility] Reports generated via electronic interface contain marily ginal data; however they are lacking the format of the original re port. Caution should be taken when reading/interpreting unfo rmatted reports. Name: ? AILEEN MURPHY ? Accession #: ? [id number] : ? 1970 (Age: 36) ??F ?Collect Date: ? 02/02 Location: ? [facility] ? Receive Date : ? 02/15/2006 Provider: ?GER PETTIT MD Copy to: ? Specimen/Source: ? ThinPrep Pap Test, Cervix/Endocervix, processed on Datahero ThinPrep Imaging System, with manual evaluation Last Menstrual Period: ? Previous Gynecologic Pathology: ? Yes: Moderate dysplasia 1991 Treatment History: ? Cryotherapy: 1990 Other: ? Additional clinical information: Paps wnl since HPVDX - HPV testing requested regardless of diag nosis on current ThinPrep Pap test. ? SPECIMEN ADEQUACY ? Satisfactory for Evaluation - transformation zone component absent GENERAL CATEGORIZATION ? Negative for Intraepithelial Lesion or Malignan cy INTERPRETATION ? Fungal organisms pres ent morphologically consistent with Brandy species. ? Document reviewed and electronically signed by: ? FATOU Reyes(ASCP) ? Report Date: ??02/20/2006 13:54 End of Report Specimen Performing Organization Address City/State/ZIP Code Phon e Number [facility] [address] [place] [address] SERVICES [facility] [address] [place] [address] documented in this encounter Visit Diagnoses Not on filedocumented in this encounter Care Teams Vascular Sonographer Relationship Specialty Start Date End Date Brock Alexander MD PCP - General 01/22/09 06/24/[address] [place] [address] [place], [place] [id number] documented as of this encounter
--- OUTSIDE RECORDS SUMMARY | 2021-12-09 01:58 | XMS_ITS | Encounter Summary ---
:1970 Author Organization [facility] Address [address] [place] [address] Care Team Providers Name Role Phone Jonathan Elmore APRN Primary Care Provider Reason for Visit Reason Onset Date Comments COVID-19 01/19/2021 Encounter Details Date Type Department Care Team Description 01/19/2021 Telephone [facility] - Keren Villa MD COVID-19 [facility] [address] [place] [address] [address] [place], [place] [phone] (Wo rk) Social History Tobacco Use Types Packs/Day Years Used Date Former Smoker Cigarettes 1 30 Smokeless Tobacco: Never Used Alcohol Use Standard Drinks/Week Comments Yes 4 (1 standard drink = 0.6 oz pure alcoho l) Sex Assigned at Date Recorded Not on file documented as of this encounter Miscellaneous Notes Telephone Encounter - Nayeli Schmitt - 01/19/2021 1310 EST Called patient back to let her know that the clinic will accept the rapid covid test for the pre-appointment testing. Patient will bring results to clinic from test on .21 Is aware of quarantine guidelines elephone Encounter - Nayeli Schmitt - 01/19/2021 1223 EST Called patient to schedule covid test, Patient is wondering if a rapid covid test would suffice for the pre-appointment covid test requested, Patient states this is her only option since she needs to be tested on the weekend (11.21) Please advise documented in this encounter Plan of Treatment Upcoming Encounters Date Type Specialty Care Team Description 02/17/2022 Office Visit Otolaryngology Keren Swain MD [address] [facility], [address] [place], [place] [phone] (Wo rk) documented as of this encounter Visit Diagnoses Not on filedocumented in this encounter Care Teams Senior Web Engineer Relationship Specialty Start Date End Date Jonathan Elmore APRN PCP - General 12/29/[address] [place] [address] [address] [place] [address] documented as of this encounter
--- OUTSIDE RECORDS SUMMARY | 2021-12-09 01:58 | XMS_ITS | Encounter Summary ---
:1970 Author Organization [facility] Address [address] [place] [address] Care Team Providers Name Role Phone Brock Alexander MD Primary Care Provider Encounter Details Date Type Department Care Team Description 09/22/1999 Results Only [facility] - Ger Aguiar MD conversion [address] [place], [place] [address] Social History Tobacco Use Types Packs/Day Years Used Date Never Assessed Sex Assigned at Date Recorded Not on file documented as of this encounter Plan of Treatment Upcoming Encounters Date Type Specialty Care Team Description 02/17/2022 Office Visit Otolaryngology Keren Swain MD 111 [facility], [address] [place], [place] [address] (Wo rk) documented as of this encounter Procedures Procedure Name Priority Date/Time Associated Diagnosis Comme nts CYTOPATHOLOGY Routine 09/22/1999 0:00 EDT Results for this procedure are i n the results section . documented in this encounter Results CYTOPATHOLOGY (09/22/1999 0:00 EDT) Pathology Report: CYTOPATHOLOGY REPORT [facility] Reports generated via electronic interface contain marily ginal data; however they are lacking the format of the original re port. Caution should be taken when reading/interpreting unfo rmatted reports. Name: ? AILEEN MURPHY ? Accession #: ? [id number] : ? 1970 (Age: 29) ??F ?Collect Date: ? 09/03 Location: ? [facility] ? Receive Date : ? 09/26/1999 Provider: ?GER PETTIT MD Copy to: ? Specimen/Source: ?Conventional Pap Test, Cer vix/Endocervix Last Menstrual Period: ? 09/03/99 Previous Gynecologic Pathology: ? HSIL ASC-US: Reactive Treatment History: ? Cryotherapy: 1990 ? SPECIMEN ADEQUACY ? Satisfactory for evaluation. GENERAL CATEGORIZATION ? Within Normal Limits ? Document reviewed and electronically signed by: ? FATOU Mccarty(ASCP) ? Report Date: ??09/28/1999 16:27 End of Report Specimen Performing Organization Address City/State/ZIP Code Phon e Number [facility] [address] [place] [address] SERVICES [facility] [address] [place] [address] documented in this encounter Visit Diagnoses Not on filedocumented in this encounter Care Teams Clearing Tub Worker Relationship Specialty Start Date End Date Brock Alexander MD PCP - General 01/22/09 06/24/18 [address] [facility] [place] [address] documented as of this encounter
--- OUTSIDE RECORDS SUMMARY | 2021-12-09 01:58 | XMS_ITS | Encounter Summary ---
:[address] [facility] Address [address] [place] [address] Care Team Providers Name Role Phone Brock Alexander MD Primary Care Provider Encounter Details Date Type Department Care Team Description 05/04/2014 Results Only [facility] Srinivas Pettit am, MD Services - Kay [facility] [place], [place] [id number] Social History Tobacco Use Types Packs/Day Years Used Date Never Assessed Sex Assigned at Date Recorded Not on file documented as of this encounter Plan of Treatment Upcoming Encounters Date Type Specialty Care Team Description 02/17/2022 Office Visit Otolaryngology Keren Swain MD [address] [facility] [place], [place] [address] (Wo rk) documented as of this encounter Procedures Procedure Name Priority Date/Time Associated Diagnosis Comme nts PAP TEST- RESULT Routine 05/04/2014 0:00 EST Resu lts for this ONLY procedure are i n the results section. documented in this encounter Results PAP TEST- RESULT ONLY (05/04/2014 0:00 EST) Pathology Report: CYTOPATHOLOGY REPORT [facility] Reports generated via electronic interface contain marily ginal data; SERVICES however they are lacking the format of the original re port. Caution should be taken when reading/interpreting unfo rmatted reports. Name: ? AILEEN MURPHY ? Accession #: ? [id number] ? : ? 1970 (Age: 44) ??F ?Collect Da te: ? 05/04/2014 ? Location: ? [facility] ? Receive Date: ? 015 ? Provider: YANDY PETTIT MD Copy to: ? Final Report SPECIMEN ADEQUACY ? Satisfactory for Evaluation - transformation zone component absent GENERAL CATEGORIZATION ? Negative for Intraepithelial Lesion or Malignan cy INTERPRETATION ? Fungal organisms pres ent morphologically consistent with Brandy species. Previous Gynecologic Pathology: HSIL: Mild Dysplasia Treatment History: Cryotherapy: 1990 Specimen/Source: ??Pap Test, Cervix/Endocervix, ThinPr ep Imaging System with manual evaluation Document reviewed and electronically signed by: ? Roc Gordon, CT(ASCP) ? Report ??Date: 05/11/2014 15:15 HPV with Pap Test ? Date Ordered: ? 05/11/2014 ? Status: ?? Signed Out ?Date Complete: ? 05/12/2014 ? By: ??S ystem Interface ? Date Reported: ? 05/12/2014 ? Interpretation RESULT: Negative for HPV. No E6 or E7 mRNA is detected from HPV types 16,18,31,3 3,35, 39,45,51,52,56,58,59,66, and 68 by emt media ronel amplification. Comments Document reviewed and electronically signed by: ? System Interface ? Report date: 05/12/2014 By the signature above, the attending physician certif ies that he/she has personally conducted a gross and/or microscopic examin ation of the described specimens and rendered or confirmed the above diagnosi s. End of Report Specimen Performing Organization Address City/State/ZIP Code Phon e Number [facility] [address] [place] [address] SERVICES documented in this encounter Visit Diagnoses Not on filedocumented in this encounter Care Teams Agile Qa Tester Relationship Specialty Start Date End Date Brock Alexander MD PCP - General 01/22/09 06/24/[address] [place] [address] [place], [place] [phone] documented as of this encounter
--- OUTSIDE RECORDS SUMMARY | 2021-12-09 01:58 | XMS_ITS | Encounter Summary ---
:1970 Author Organization [facility] Address [address] [place] [address] Care Team Providers Name Role Phone Jonathan Elmore APRN Primary Care Provider Encounter Details Date Type Department Care Team Description 12/29/2020 Phlebotomy Only [facility] 2 Brokerage Coordinator, Acc Chroni c pansinusitis Phlebotomy Phlebotomy [address] [place], [place] [id number] Social History Tobacco Use Types Packs/Day Years [...] Office Visit Otolaryngology Keren Swain MD [address] [facility], [address] [place], [place] [address] (Wo rk) documented as of this encounter Procedures Procedure Name Priority Date/Time Associated Diagnosis Comme nts COMPLETE BLOOD COUNT Routine 12/29/2020 17:32 Chronic pansinus itis Results for this AND DIFFERENTIAL EDT procedure a re in the results section. documented in this encounter Results (ABNORMAL) COMPLETE BLOOD COUNT AND DIFFERENTIAL (12/29/2020 17:32 EDT) WBC 10.20 4.00 - 12.40 [facility]ATORY SERVICES RBC 5.02 3.86 - 5.04 [facility]ATORY SERVICES Hemoglobin 14.8 11.6 - 15.2 [facility] gm/dL LABORATORY SERVICES HCT 44.3 34.9 - 44.4 % [facility] MCV 88 81 - 98 fl [facility] MCH 29.5 26.7 - 33.3 pg [facility] MCHC 33.4 32.1 - 35.9 [facility] gm/dL LABORATORY SERVICES RDW-CV 13.0 <14.7 % [facility] RDW-SD 42.0 <50.4 fl [facility] SERVICES PLT 383 (H) 141 - 377 K/[facility] LABORATORY SERVICES MPV 11.0 9.5 - 12.7 fl [facility] Neutrophils 61.9 % [facility] Lymphocytes 22.1 % [facility] Monocytes 10.2 % [facility] Eosinophils 4.5 % [facility] Basophils 0.9 % [facility] Immature Grans 0.4 % [facility] Absolute Neutrophils 6.32 2.20 - 8.85 [facility] LABORATORY SERVICES Absolute Lymphocytes 2.25 1.09 - 3.30 [facility]ORATORY SERVICES Absolute Monocytes 1.04 (H) 0.10 - 0.80 [facility] LABORATORY SERVICES Absolute Eosinophils 0.46 0.03 - 0.61 [facility]ORATORY SERVICES Absolute Basophils 0.09 0.01 - 0.11 [facility]ORATORY SERVICES Absolute Immature 0.04 0.00 - 0.06 [facility]ATORY SERVICES Type of Differential: Auto [facility] Specimen Blood - Venous blood (substance) Performing Organization Address City/State/ZIP Code Phon e Number [facility] [address] [place] [address] SERVICES documented in this encounter Visit Diagnoses Diagnosis Chronic pansinusitis Other chronic sinusitis documented in this encounter Care Teams Cognos Bi Administrator Relationship Specialty Start Date End Date Jonathan Elmore APRN PCP - General 12/29/[address] [place] [address] [address] [place], [place] [phone] documented as of this encounter
[2021-12-09] MEDS: Albuterol HFA 18 GM 200 PUFF INH IH (09:32)
[2021-12-09] MEDS: Inhaler, Assist Device 1 EACH MC (09:32)
--- NOTE | 2021-12-09 16:20 | PFT_ITS ---
Date of service: 12/09/21 Time of Service: 08:03 Pulmonary Function Test Result Requesting Provider Shellie Indications: MULLER Interpretation Spirometry: There is moderate airflow limitation. There is a significant bronchodilator response. Lung Volumes: There is evidence of air trapping. Diffusion Capacity: The diffusion is reduced Airway Pressure: Increased airways resistance. Impression There is moderate airflow obstruction with a bronchodilator response and a reduced diffusion. In the proper clinical setting this could represent Asthma- COPD Overlap Syndrome. Clinical Correlation therefore is recommended.
== END 2021-12-09 01:53 | disposition home or self-care (01) ==
LOC: RT 01:52
PROVIDERS: PCP Nurse Practitioner Family; Visit Provider Student in an Organized Health Care Education/Training Program
DX: J45.909 Unspecified asthma, uncomplicated (principal); R06.09 Other forms of dyspnea; J98.4 Other disorders of lung
CPT/HCPCS: 94060; 94726; 94729